=== PATIENT | female | born 1985 | race Hispanic/Latino ===

== ENCOUNTER 2018-11-16 17:27 | Emergency (ER) | payer OTHER ==
[2018-11-16 18:23] LABS: Absolute Lymphocytes (CBC) 4.1 K/uL (0.7-4.9); Absolute Monocytes 0.7 K/uL (0.1-1.3); Absolute Neutrophil 7.6 K/uL (1.8-8.0); Basophils % 0.4 % (0-1.3); Eosinophils % 1.2 % (0-4.4); Hematocrit 40.1 % (36.0-45.0); Lymphocytes % 32.4 % (15.3-44.8); MCH 26.7 pg (27.0-35.0); MCV 81.4 fL (80-100); MPV 8.1 fL (7.6-11.3); Monocytes % 5.4 % (3.3-12.3); RBC Red Blood Cell Count 4.93 M/uL (3.86-4.86)
[2018-11-16 18:53] LABS: ALT/SGPT 23 U/L (12-78); AST/SGOT 10 U/L (15-37); Albumin 3.5 g/dL (3.4-5.0); Alkaline Phosphatase 105 U/L (45-117); BUN Blood Urea Nitrogen 10 mg/dL (7-18); Bicarbonate 25 mmol/L (21-32); Bilirubin Direct < 0.1 mg/dL (0-0.2); Bilirubin Total 0.2 mg/dL (0.2-1.0); Glucose Level 98 mg/dL (74-106); Lipase 176 U/L (73-393); Potassium 3.6 mmol/L (3.5-5.1); Protein, Total 8.1 g/dL (6.4-8.2); Sodium Level 140 mmol/L (136-145)
[2018-11-16] MEDS ORDERED: NA CHLORIDE 0.9% 1,000 ML ONE (19:00)
[2018-11-16] MEDS ORDERED: ONDANSETRON 4 MG/2 ML VIAL ONE (19:41)
[2018-11-16] MEDS ORDERED: PROMETHAZINE 25 MG/ML VIAL ONE (19:44)
[2018-11-16 20:14] LABS: Urine Blood NEGATIVE (NEG); Urine Glucose NEGATIVE (NEG); Urine Protein NEGATIVE (NEG); Urine pH 5.5 (5.0-7.0)
[2018-11-16 20:16] LABS: Urine Bacteria <20 /HPF (<20); Urine RBC <5 /HPF (NONE SEEN)
[2018-11-16 20:17] LABS: Urine Culture Reflex Order NOT NEEDED
[2018-11-16] MEDS ORDERED: KETOROLAC 30 MG/ML INJ ONE (22:09)
--- NOTE | 2018-11-16 22:16 | RAD REPORT ---
EXAM DESCRIPTION: CT - Abdomen Pelvis W Contrast - 11/16/2018 9:41 pm CLINICAL HISTORY: Abdominal pain, right lower quadrant pain COMPARISON: None. TECHNIQUE: Biphasic, helical CT imaging of the abdomen and pelvis was performed following 100 ml non -ionic IV contrast. Oral contrast was given. All CT scans are performed using dose optimization technique as appropriate and may include automated exposure control or mA/KV adjustment according to patient size. FINDINGS: No suspicious findings in the lung bases. Diffuse fatty infiltration of the liver with no focal liver lesions seen. Spleen and pancreas are unr emarkable. Gallbladder and biliary tree are also without suspicious finding. Symmetric renal function is seen with no hydronephrosis or suspicious renal mass. A 6 mm nonobstructi ng calculus is present lower pole of the right kidney. Urinary bladder is contracted. No bladder calc ulus. No pyelonephritis or acute parenchymal process. No adrenal abnormalities. No dilated bowel loops or bowel wall thickening. No free air, free fluid or inflammatory stranding. No mass or bulky lymphadenopathy. No omental thickening. Uterus and ovaries show no suspicious findi ngs. Approximately 10 cm size hernia is present in the midline and right side of the abdomen. There is molly stasis of the abdominal wall musculature at the hernia. Several loops of small bowel extends through the hernia defect. No acute bowel edema or congestion of the herniated fat. No suspicious bony findings. IMPRESSION: Large 10 centimeter midline and right side ventral hernia is seen in the lower pelvis. T he herniated fat and herniated bowel extend in the right lower quadrant subcutaneous fat accounting f or the palpable abnormality. Hernia has a wide neck. There is no congestion or edema of the herniated bowel loops or herniated fat . Fatty infiltration of the liver. Nonobstructing calculus lower pole right kidney.
--- NOTE | 2018-11-16 22:31 | EDPHYS ---
Physician Documentation [facility] Name: Padmini Storey Age: 32 yrs Sex: Female : 1985 Arrival Date: 11/16/2018 Time: 17:32 Bed 3 Private MD: ED Physician Cristian Ham HPI: 11/16 18:34 This 32 yrs old Female presents to ER via Ambulatory with complaints of Abdominal Pain. snw 18:34 The patient presents with abdominal pain that is diffuse. Onset: The symptoms/episode snw began/occurred 3 day(s) ago. The symptoms do not radiate. Associated signs and symptoms: Pertinent positives: constipation, diarrhea, nausea. The symptoms are described as crampy. Severity of pain: At its worst the pain was moderate. The patient has experienced similar episodes in the past. It is unknown whether or not the patient has recently seen a physician. 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 - Social history:: Smoking status: Patient/guardian denies using tobacco, Patient/guardian denies using alcohol, street drugs. - Ebola Screening: : Patient negative for fever greater than or equal to 101.5 degrees Fahrenheit, and additional compatible Ebola Virus Disease symptoms Patient denies exposure to infectious person Patient denies travel to an Ebola-affected area in the 21 days before illness onset No symptoms or risks identified at this time. ROS: 18:34 Constitutional: Negative for fever, chills, and weight loss, Eyes: Negative for injury, snw pain, redness, and discharge, ENT: Negative for injury, pain, and discharge, Neck: Negative for injury, pain, and swelling, Cardiovascular: Negative for chest pain, palpitations, and edema, Respiratory: Negative for shortness of breath, cough, wheezing, and pleuritic chest pain, Back: Negative for injury and pain, : Negative for injury, bleeding, discharge, and swelling, MS/Extremity: Negative for injury and deformity, Skin: Negative for injury, rash, and discoloration, Neuro: Negative for headache, weakness, numbness, tingling, and seizure. 18:34 Abdomen/GI: Positive for abdominal pain, nausea, diarrhea, constipation. Exam: 18:33 Constitutional: This is a well developed, well nourished patient who is awake, alert, snw and in no acute distress. Head/Face: Normocephalic, atraumatic. Eyes: Pupils equal round and reactive to light, extra-ocular motions intact. Lids and lashes normal. Conjunctiva and sclera are non-icteric and not injected. Cornea within normal limits. Periorbital areas with no swelling, redness, or edema. ENT: Nares patent. No nasal discharge, no septal abnormalities noted. Tympanic membranes are normal and external auditory canals are clear. Oropharynx with no redness, swelling, or masses, exudates, or evidence of obstruction, uvula midline. Mucous membranes moist. Neck: Trachea midline, no thyromegaly or masses palpated, and no cervical lymphadenopathy. Supple, full range of motion without nuchal rigidity, or vertebral point tenderness. No Meningismus. Chest/axilla: Normal chest wall appearance and motion. Nontender with no deformity. No lesions are appreciated. Cardiovascular: Regular rate and rhythm with a normal S1 and S2. No gallops, murmurs, or rubs. Normal PMI, no JVD. No pulse deficits. Respiratory: Lungs have equal breath sounds bilaterally, clear to auscultation and percussion. No rales, rhonchi or wheezes noted. No increased work of breathing, no retractions or nasal flaring. Abdomen/GI: Soft, non-tender, with normal bowel sounds. No distension or tympany. No guarding or rebound. evidence of minimal tenderness throughout. Obese Back: No spinal tenderness. No costovertebral tenderness. Full range of motion. Skin: Warm, dry with normal turgor. Normal color with no rashes, no lesions, and no evidence of cellulitis. MS/ Extremity: Pulses equal, no cyanosis. Neurovascular intact. Full, normal range of motion. Neuro: Awake and alert, GCS 15, oriented to person, place, time, and situation. Cranial nerves II-XII grossly intact. Motor strength 5/5 in all extremities. Sensory grossly intact. Cerebellar exam normal. Normal gait. 22:26 Abdomen/GI: Inspection: obese Bowel sounds: normal, Palpation: mild abdominal snw tenderness, in the suprapubic area and right lower quadrant, no hard mass, no palpable mass, soft, mildly tender right lower quad. Vital Signs: 17:43 BP 140 / 84; Pulse 78; Resp 16; Temp 99.4; Pulse Ox 99% on R/A; Weight 77.11 kg; Height ch 5 ft. (152.40 cm); Pain 8/10; 18:45 BP 118 / 81; Pulse 83; Resp 16 S; Pulse Ox 100% on R/A; aa5 22:17 BP 123 / 82; Pulse 93; Resp 16 S; Pulse Ox 100% on R/A; jd3 17:43 Body Mass Index 33.20 (77.11 kg, 152.40 cm) ch MDM: 17:48 Patient medically screened. snw 22:25 Data reviewed: vital signs, nurses notes. Data interpreted: Pulse oximetry: on room air snw is 100 %. Interpretation: normal. Counseling: I had a detailed discussion with the patient and/or guardian regarding: the historical points, exam findings, and any diagnostic results supporting the discharge/admit diagnosis, the presence of at least one elevated blood pressure reading (>120/80) during this emergency department visit, lab results, radiology results, the need for outpatient follow up, to return to the emergency department if symptoms worsen or persist or if there are any questions or concerns that arise at home. Special discussion: Based on the patient's Hx, exam, and Dx evaluation, there is no indication for emergent surgery or inpatient Tx. It is understood by the patient/guardian that if the Sx's persist or worsen they need to return immediately for re-evaluation. I have referred the patient to see his PCP for further evaluation of high blood pressure. Based on the history and exam findings, there is no indication for further emergent testing or inpatient evaluation. I discussed with the patient/guardian the need to see the general surgeon for further evaluation of the symptoms. I discussed with the patient/guardian the need to see the primary care provider for further evaluation of the symptoms. 11/16 17:46 Order name: Basic Metabolic Panel; Complete Time: 18:55 snw 11/16 17:46 Order name: CBC with Diff; Complete Time: 18:43 snw 11/16 17:46 Order name: Hepatic Function; Complete Time: 18:55 snw 11/16 17:46 Order name: Lipase; Complete Time: 18:55 snw 11/16 17:46 Order name: Urine Culture snw 11/16 17:46 Order name: Urine Microscopic Only; Complete Time: 20:19 snw 11/16 17:46 Order name: IV Saline Lock; Complete Time: 18:18 snw 11/16 17:46 Order name: Labs collected and sent; Complete Time: 18:18 snw 11/16 18:47 Order name: CT Abd/Pelvis - W/Contrast; Complete Time: 22:17 snw 11/16 19:16 Order name: Urine Dipstick--Ancillary (enter results); Complete Time: 20:19 mt 11/16 19:16 Order name: Urine --Ancillary (enter results); Complete Time: 20:19 mt 11/16 17:46 Order name: Urine Test (obtain specimen); Complete Time: 19:12 snw 11/16 17:46 Order name: Urine Dipstick-Ancillary (obtain specimen); Complete Time: 19:12 snw Administered Medications: 19:08 Drug: NS 0.9% 1000 ml Route: IV; Rate: 125 ml/hr; Site: right antecubital; em 23:11 Follow up: Response: No adverse reaction; IV Status: Order to discontinue infusion jd3 19:39 Drug: Phenergan 6.25 mg Route: IVP; Site: right antecubital; jd3 22:05 Follow up: Response: No adverse reaction jd3 22:05 Drug: TORadol 30 mg Route: IVP; Site: right antecubital; jd3 23:11 Follow up: Response: No adverse reaction jd3 Disposition: 11/17 06:39 Co-signature as Attending Physician, Cristian Ham MD I agree with the assessment and dane plan of care. Disposition: 11/16/18 22:30 Discharged to Home. Impression: Ventral hernia without obstruction or gangrene. - Condition is Stable. - Discharge Instructions: Hernia, Adult, Ventral Hernia. - Prescriptions for Diclofenac Sodium 75 mg Oral Tablet Sustained Release - take 1 tablet by ORAL route 2 times per day; 30 tablet. Miralax 17 gram/dose Oral - take 1 packet by ORAL route once daily dilute powder in 8 ounces of water or juice; 1 box. - Medication Reconciliation Form, Thank You Letter, Antibiotic Education, Prescription Opioid Use form. - Follow up: Teodoro Shin MD; When: 1 - 2 days; Reason: Recheck today's complaints, Continuance of care. Follow up: Private Physician; When: 2 - 3 days; Reason: Recheck today's complaints, Continuance of care. Follow up: Emergency Department; When: As needed; Reason: Worsening of condition. Signatures: Dispatcher [employer] Claudia Cole, RN RN Cristian Jennings MD MD cha Therrien, Shelly, AGENCY LEGAL COUNSEL-C AGENCY LEGAL COUNSEL-Csnw Ignacio Cleary, TELEMETRY NURSE TELEMETRY NURSE Fredrick Arredondo RN RN jd3 Corrections: (The following items were deleted from the chart) 11/16 23:15 22:30 11/16/2018 22:30 Discharged to Home. Impression: Ventral hernia without jd3 obstruction or gangrene. Condition is Stable. Forms are Medication Reconciliation Form, Thank You Letter, Antibiotic Education, Prescription Opioid Use. Follow up: Teodoro Shin; When: 1 - 2 days; Reason: Recheck today's complaints, Continuance of care. Follow up: Private Physician; When: 2 - 3 days; Reason: Recheck today's complaints, Continuance of care. Follow up: Emergency Department; When: As needed; Reason: Worsening of condition. snw
--- NOTE | 2018-11-16 22:31 | ER ---
Nurse's Notes [facility] Name: Padmini Storey Age: 32 yrs Sex: Female : 1985 Arrival Date: 11/16/2018 Time: 17:32 Bed 3 Private MD: Diagnosis: Ventral hernia without obstruction or gangrene Presentation: 11/16 17:38 Presenting complaint: Patient states: weird bowel movements, nausea, pain to abdomen, ch generalized, since Thursday. 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 Transition of care: patient was not received from another setting of care. Onset of symptoms was November 12, 2018. Risk Assessment: Do you want to hurt yourself or someone else? Patient reports no desire to harm self or others. Initial Sepsis Screen: Does the patient meet any 2 criteria? No. Patient's initial sepsis screen is negative. Does the patient have a suspected source of infection? No. Patient's initial sepsis screen is negative. Care prior to arrival: None. 17:38 Method Of Arrival: Ambulatory 17:38 Acuity: CHRISTINE 3 ch Triage Assessment: 17:43 General: Appears in no apparent distress. uncomfortable, Behavior is calm, cooperative, ch appropriate for age. Pain: Complains of pain in abdomen Pain currently is 9 out of 10 on a pain scale. GI: Reports lower abdominal pain, upper abdominal pain, nausea. 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 - Social history:: Smoking status: Patient/guardian denies using tobacco, Patient/guardian denies using alcohol, street drugs. - Ebola Screening: : Patient negative for fever greater than or equal to 101.5 degrees Fahrenheit, and additional compatible Ebola Virus Disease symptoms Patient denies exposure to infectious person Patient denies travel to an Ebola-affected area in the 21 days before illness onset No symptoms or risks identified at this time. Screenin:05 Abuse screen: Denies threats or abuse. Nutritional screening: No deficits noted. aa5 Tuberculosis screening: No symptoms or risk factors identified. Fall Risk None identified. Assessment: 18:05 General: Appears comfortable, Behavior is calm, cooperative. Pain: Complains of pain in aa5 right upper quadrant, left upper quadrant, right lower quadrant and left lower quadrant Pain does not radiate. Pain currently is 7 out of 10 on a pain scale. Quality of pain is described as aching, crampy, dull, Pain began 4 days ago Is continuous. Neuro: Level of Consciousness is awake, alert, obeys commands, Oriented to person, place, time, situation. Cardiovascular: Heart tones S1 S2 present Rhythm is regular. Respiratory: Airway is patent Respiratory effort is even, unlabored, Respiratory pattern is regular, symmetrical, Breath sounds are clear bilaterally. GI: Abdomen is round non-distended, Bowel sounds present X 4 quads. Abd is soft X 4 quads Abdomen is tender to palpation in right lower quadrant and left lower quadrant Reports diarrhea, nausea, Patient currently denies vomiting. : Denies burning with urination. EENT: No signs and/or symptoms were reported regarding the EENT system. Derm: Skin is pink, warm \\T\\ dry. Musculoskeletal: Range of motion: intact in all extremities. 18:58 Reassessment: Patient and/or family updated on plan of care and expected duration. Pain aa5 level reassessed. Patient is alert, oriented x 3, equal unlabored respirations, skin warm/dry/pink. Pt drinking CT oral contrast, SOLUTIONS DEVELOPMENT ANALYST notified of pt's complaint of nausea at this time. . 19:39 Reassessment: Patient and/or family updated on plan of care and expected duration. Pain jd3 level reassessed. Patient is alert, oriented x 3, equal unlabored respirations, skin warm/dry/pink. CT notified of pt finishing PO contrast. 22:16 Reassessment: Patient appears in no apparent distress at this time. Patient and/or jd3 family updated on plan of care and expected duration. Pain level reassessed. Patient is alert, oriented x 3, equal unlabored respirations, skin warm/dry/pink. 23:11 Reassessment: Patient appears in no apparent distress at this time. Patient and/or jd3 family updated on plan of care and expected duration. Pain level reassessed. Patient is alert, oriented x 3, equal unlabored respirations, skin warm/dry/pink. Vital Signs: 17:43 BP 140 / 84; Pulse 78; Resp 16; Temp 99.4; Pulse Ox 99% on R/A; Weight 77.11 kg; Height ch 5 ft. (152.40 cm); Pain 8/10; 18:45 BP 118 / 81; Pulse 83; Resp 16 S; Pulse Ox 100% on R/A; aa5 22:17 BP 123 / 82; Pulse 93; Resp 16 S; Pulse Ox 100% on R/A; jd3 17:43 Body Mass Index 33.20 (77.11 kg, 152.40 cm) ED Course: 17:32 Patient arrived in ED. sb2 17:39 Triage completed. ch 17:43 Arm band placed on right wrist. Patient placed in an exam room, on a stretcher. ch 17:45 [facility] Frank [facility]C [facility]. snw 17:45 Cristian Ham MD is Attending Physician. snw 17:53 Beth Muñoz RN is Primary Nurse. aa5 18:05 Patient has correct armband on for positive identification. Placed in gown. Bed in low aa5 position. Call light in reach. Side rails up X 1. Adult w/ patient. 18:10 Missed attempt(s): 20 gauge in left antecubital area. Bleeding controlled, band aid aa5 applied, catheter tip intact. 18:10 No provider procedures requiring assistance completed. aa5 18:15 Initial lab(s) drawn, by me, sent to lab. Inserted saline lock: 22 gauge in right aa5 forearm, using aseptic technique. Blood collected. 19:05 Report given to IVAN Chaparro. aa5 21:[address] via wheelchair. vm2 21:42 CT Abd/Pelvis - W/Contrast In Process Unspecified. EDMS 21:48 CT completed. Patient tolerated procedure well. Patient moved back from CT. vm2 22:29 Teodoro Shin MD is Referral Physician. snw 23:10 IV discontinued, intact, bleeding controlled, No redness/swelling at site. Pressure jd3 dressing applied. Administered Medications: 19:08 Drug: NS 0.9% 1000 ml Route: IV; Rate: 125 ml/hr; Site: right antecubital; em 23:11 Follow up: Response: No adverse reaction; IV Status: Order to discontinue infusion jd3 19:39 Drug: Phenergan 6.25 mg Route: IVP; Site: right antecubital; jd3 22:05 Follow up: Response: No adverse reaction jd3 22:05 Drug: TORadol 30 mg Route: IVP; Site: right antecubital; jd3 23:11 Follow up: Response: No adverse reaction jd3 Outcome: 22:30 Discharge ordered by . snw 23:10 Discharged to home ambulatory, with family. jd3 23:10 Condition: stable 23:10 Discharge instructions given to patient, family, Instructed on discharge instructions, follow up and referral plans. medication usage, Demonstrated understanding of instructions, follow-up care, medications, Prescriptions given X 2. 23:15 Patient left the ED. jd3 Signatures: Dispatcher [employer] Claudia Cole, RN RN Telma Rodriges, ELECTRICIAN SHIP-C ELECTRICIAN SHIP-Csnw Ignacio Cleary, BILINGUAL TEACHER BILINGUAL TEACHER Beth Bentley RN RN aa5 Sanjuana Carbajal 2 Fredrick Anne RN RN jd3 Norma Serna [facility]
== END 2018-11-16 23:15 | disposition home or self-care (01) ==
LOC: ER 17:27
DX: K43.9 Ventral hernia without obstruction or gangrene (principal); Z88.5 Allergy status to narcotic agent; Z88.6 Allergy status to analgesic agent; Z88.8 Allergy status to other drugs, medicaments and biological substances
CPT/HCPCS: 36415; 74177; 80048; 80076; 81003; 81015; 81025; 83690; 85025; 87086; 87088; 96361; 96374; 96375; 99284; J2405; J2550; J7030; Q9967

== ENCOUNTER 2019-06-17 15:34 | Emergency (ER) | payer OTHER, SELFPAY ==
--- OUTSIDE RECORDS SUMMARY | 2019-06-17 15:36 | XMS REPORT ---
:1985 [facility] [address] [place] [address] Care Team Providers Name Role Phone Unavailable Unavailable Unavailable Problems This patient has no known problems. Allergies, Adverse Reactions, Alerts This patient has no known allergies or adverse reactions. Medications This patient has no known medications.
--- NOTE | 2019-06-17 16:43 | RAD REPORT ---
EXAM DESCRIPTION: RAD - Ankle Right 3 View - 06/17/2019 4:36 pm CLINICAL HISTORY: pain COMPARISON: No comparisons FINDINGS: Soft tissue swelling is seen about the lateral ankle. A small amount of soft tissue air is noted. Prominent plantar calcaneal spur. No fracture is seen.
[2019-06-17] MEDS ORDERED: TETANUS & DIPHTHERIA TOX,ADULT 0.5 ML VIAL ONE (17:10)
[2019-06-17] MEDS ORDERED: AMOX/K CLAV 875 MG TAB ONE (17:10)
[2019-06-17] MEDS ORDERED: LIDOCAINE VISCOUS 2% SOLN 15 ML UDC ONE (17:12)
--- NOTE | 2019-06-17 17:29 | EDPHYS ---
Physician Documentation [facility] Name: Padmini Storey Age: 33 yrs Sex: Female : 1985 Arrival Date: 06/17/2019 Time: 15:38 Bed 27 Private MD: ED Physician Titi Aaron HPI: 06/17 16:48 This 33 yrs old Female presents to ER via Wheelchair with complaints of Dog kb Bite. 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 Onset: The symptoms/episode began/occurred just prior to arrival. Animal information: Patient/Caregiver unable to provide information related to the animal. Secondary to the bite the patient reports an abrasion, erythema, pain, swelling. Associated signs and symptoms: Pertinent positives: erythema at site, pain at site, swelling at site. Severity of symptoms: At their worst the symptoms were mild, moderate, in the emergency department the symptoms are unchanged. The patient has not experienced similar symptoms in the past. The patient has not recently seen a physician. 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 - Social history:: Smoking status: Patient/guardian denies using tobacco. - Ebola Screening: : Patient denies travel to an Ebola-affected area in the 21 days before illness onset. ROS: 16:48 Constitutional: Negative for fever, chills, and weight loss, Cardiovascular: Negative kb for chest pain, palpitations, and edema, Respiratory: Negative for shortness of breath, cough, wheezing, and pleuritic chest pain, Abdomen/GI: Negative for abdominal pain, nausea, vomiting, diarrhea, and constipation, Back: Negative for injury and pain, MS/Extremity: Negative for injury and deformity, Neuro: Negative for headache, weakness, numbness, tingling, and seizure. 16:48 Skin: Positive for abrasion(s), puncture, of the anterior aspect of right ankle and lateral aspect of right calf and medial aspect of left calf. Exam: 16:46 Constitutional: This is a well developed, well nourished patient who is awake, alert, kb and in no acute distress. Head/Face: Normocephalic, atraumatic. Chest/axilla: Normal chest wall appearance and motion. Nontender with no deformity. No lesions are appreciated. Cardiovascular: Regular rate and rhythm with a normal S1 and S2. No gallops, murmurs, or rubs. Normal PMI, no JVD. No pulse deficits. Respiratory: Lungs have equal breath sounds bilaterally, clear to auscultation and percussion. No rales, rhonchi or wheezes noted. No increased work of breathing, no retractions or nasal flaring. Abdomen/GI: Soft, non-tender, with normal bowel sounds. No distension or tympany. No guarding or rebound. No evidence of tenderness throughout. MS/ Extremity: Pulses equal, no cyanosis. Neurovascular intact. Full, normal range of motion. Neuro: Awake and alert, GCS 15, oriented to person, place, time, and situation. Cranial nerves II-XII grossly intact. Motor strength 5/5 in all extremities. Sensory grossly intact. Cerebellar exam normal. Normal gait. 16:46 Skin: injury, bite(s), superficial, of the lateral aspect of right calf, anterior aspect of right ankle and medial aspect of left calf. Vital Signs: 15:54 BP 133 / 88; Pulse 103; Resp 18; Temp 97.7; Pulse Ox 100% on R/A; Weight 79.38 kg (R); aj1 Height 5 ft. 0 in. (152.40 cm) (R); Pain 8/10; 16:50 BP 128 / 92; Pulse 84; Resp 17 S; Pulse Ox 100% ; ca1 17:50 BP 131 / 86; Pulse 82; Resp 16 S; Temp 97.8(O); Pulse Ox 100% ; ca1 15:54 Body Mass Index 34.18 (79.38 kg, 152.40 cm) aj1 MDM: 15:54 Patient medically screened. kb 16:46 Data reviewed: vital signs, nurses notes. Data interpreted: Pulse oximetry: on room air kb is 100 %. Interpretation: normal. Counseling: I had a detailed discussion with the patient and/or guardian regarding: the historical points, exam findings, and any diagnostic results supporting the discharge/admit diagnosis, radiology results, the need for outpatient follow up, a family practitioner, to return to the emergency department if symptoms worsen or persist or if there are any questions or concerns that arise at home. 16:50 ED course: Pt reports she called the PD and filed a report.. kb 17:28 ED course: No lacerations requiring sutures. Wounds cleaned. . 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 Exp: ca1 02/19/2021. Lot #: [id number]. } Route: IM; Site: right deltoid; 17:37 Follow up: Response: No adverse reaction ca1 17:38 Follow up: Response: No adverse reaction ca1 Disposition: 06/18 17:59 Co-signature as Attending Physician, Titi Aaron MD. Disposition: 06/17/19 17:29 Discharged to Home. Impression: Bitten by dog. - Condition is Stable. - Discharge Instructions: Animal Bite, [id number]. - Prescriptions for Augmentin 875- 125 mg Oral Tablet - take 1 tablet by ORAL route every 12 hours for 10 days; 20 tablet. - Medication Reconciliation Form, Thank You Letter, Antibiotic Education, Prescription Opioid Use form. - Follow up: Emergency Department; When: As needed; Reason: Worsening of condition. Follow up: Private Physician; When: 2 - 3 days; Reason: Recheck today's complaints, Continuance of care, Re-evaluation by your physician. Signatures: Dispatcher [employer] [facility] Thao Mcnally, DRE-Papi ERICKSON-Humera Ramirez, RN RN aj1 Titi Aaron MD MD gs Acmaegan, Gabriella RN RN ca1 Corrections: (The following items were deleted from the chart) 06/17 16:35 16:27 Ankle Right 3 View+[id number].BRZ ordered. [facility] 18:03 17:29 06/17/2019 17:29 Discharged to Home. Impression: Bitten by dog. Condition is ca1 Stable. Discharge Instructions: Animal Bite, [id number]. Prescriptions for Augmentin 875-125 mg Oral Tablet - take 1 tablet by ORAL route every 12 hours for 10 days; 20 tablet. and Forms are Medication Reconciliation Form, Thank You Letter, Antibiotic Education, Prescription Opioid Use. Follow up: Emergency Department; When: As needed; Reason: Worsening of condition. Follow up: Private Physician; When: 2 - 3 days; Reason: Recheck today's complaints, Continuance of care, Re-evaluation by your physician. kb
--- NOTE | 2019-06-17 17:29 | ER ---
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 Bleeding lightly. Patient states that she already filed a police report. Transition of care: patient was not received from another setting of care. Onset of symptoms was June 17, 2019. Risk Assessment: Do you want to hurt yourself or someone else? Patient reports no desire to harm self or others. Initial Sepsis Screen: Does the patient meet any 2 criteria? HR > 90 bpm. No. Patient's initial sepsis screen is negative. Does the patient have a suspected source of infection? Yes: Skin breakdown/wound. Care prior to arrival: None. 15:51 Method Of Arrival: Wheelchair aj1 15:51 Acuity: CHRISTINE 3 aj1 Triage Assessment: 15:54 Bite description: bite sustained to right ankle, right calf and left calf by a dog, aj1 animal information: vaccination(s) is unknown. General: Appears in no apparent distress. uncomfortable, Behavior is calm, cooperative, appropriate for age. Pain: Complains of pain in right leg and left leg. Neuro: Level of Consciousness is awake, alert, obeys commands, Oriented to person, place, time, situation. Cardiovascular: Patient's skin is warm and dry. Respiratory: Airway is patent Respiratory effort is even, unlabored, Respiratory pattern is regular, symmetrical. 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 - Social history:: Smoking status: Patient/guardian denies using tobacco. - Ebola Screening: : Patient denies travel to an Ebola-affected area in the 21 days before illness onset. Screenin:50 Abuse screen: Denies threats or abuse. Denies injuries from another. Nutritional ca1 screening: No deficits noted. Tuberculosis screening: No symptoms or risk factors identified. Fall Risk None identified. Assessment: 16:50 General: Appears in no apparent distress. uncomfortable, Behavior is calm, cooperative, ca1 appropriate for age. Pain: Complains of pain in anterior aspect of right ankle and lateral aspect of right calf and medial aspect of left calf and left leg and right leg Pain currently is 8 out of 10 on a pain scale. Neuro: Level of Consciousness is awake, alert, obeys commands, Oriented to person, place, time, situation. Cardiovascular: Heart tones S1 S2 present Capillary refill < 3 seconds Patient's skin is warm and dry. Respiratory: Airway is patent Respiratory effort is even, unlabored, Respiratory pattern is regular, symmetrical, Breath sounds are clear bilaterally. GI: Abdomen is round non-distended, Bowel sounds present X 4 quads. Abd is soft and non tender X 4 quads. : No deficits noted. No signs and/or symptoms were reported regarding the genitourinary system. EENT: No deficits noted. No signs and/or symptoms were reported regarding the EENT system. Derm: Skin is healthy with good turgor, Skin is pink, warm \\T\\ dry. Musculoskeletal: Circulation, motion, and sensation intact. Capillary refill < 3 seconds, Range of motion: intact in all extremities. Injury Description: Bite sustained to anterior aspect of right ankle and lateral aspect of right calf and medial aspect of left calf and left leg and right leg caused by a dog, was sustained less than 30 minutes ago. 17:50 Reassessment: Patient appears in no apparent distress at this time. Patient is alert, ca1 oriented x 3, equal unlabored respirations, skin warm/dry/pink. Dressed wounds. Demonstrated proper use of crutches. Vital Signs: 15:54 BP 133 / 88; Pulse 103; Resp 18; Temp 97.7; Pulse Ox 100% on R/A; Weight 79.38 kg (R); aj1 Height 5 ft. 0 in. (152.40 cm) (R); Pain 8/10; 16:50 BP 128 / 92; Pulse 84; Resp 17 S; Pulse Ox 100% ; ca1 17:50 BP 131 / 86; Pulse 82; Resp 16 S; Temp 97.8(O); Pulse Ox 100% ; ca1 15:54 Body Mass Index 34.18 (79.38 kg, 152.40 cm) aj1 ED Course: 15:38 Patient arrived in ED. rg4 15:53 Triage completed. aj1 15:54 [facility]C [facility]. kb 15:54 Titi Aaron MD is Attending Physician. kb 15:54 Arm band placed on Patient placed in waiting room, Patient notified of wait time. aj1 16:14 Gabriella Acosta, RN is Primary Nurse. ca1 16:36 Ankle Right 3 View In Process Unspecified. EDMS 16:50 Patient has correct armband on for positive identification. Placed in gown. Bed in low ca1 position. Call light in reach. Side rails up X 1. Pulse ox on. NIBP on. 17:21 No provider procedures requiring assistance completed. Patient did not have IV access ca1 during this emergency room visit. Wound care: to dog bite located on anterior aspect of right ankle and lateral aspect of right calf and medial aspect of left calf and left leg and right leg was cleaned with Hibiclens, Patient tolerated well. 17:50 Dressings: Kerlix X 3; anterior aspect of right ankle and lateral aspect of right calf ca1 and medial aspect of left calf. Crutch training done. 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 Exp: ca1 02/19/2021. Lot #: [id number]. } Route: IM; Site: right deltoid; 17:37 Follow up: Response: No adverse reaction ca1 17:38 Follow up: Response: No adverse reaction ca1 Outcome: 17:29 Discharge ordered by . kb 18:02 Discharged to home via wheelchair, with crutches. ca1 18:02 Condition: stable 18:02 Discharge instructions given to patient, Instructed on discharge instructions, follow up and referral plans. medication usage, crutch walking, wound care, Demonstrated understanding of instructions, follow-up care, medications, wound care, crutch walking, Prescriptions given X 1. 18:03 Patient left the ED. ca1 Signatures: Dispatcher [employer] EDThao Hicks, HUMAN RESOURCES REPRESENTATIVE-C DRE-Humera Ramirez RN RN Trista Estrada4 Gabriella Acosta RN RN ca1
== END 2019-06-17 18:03 | disposition home or self-care (01) ==
LOC: ER 15:34
DX: S80.871A Other superficial bite, right lower leg, initial encounter (principal); Z88.5 Allergy status to narcotic agent; Z88.6 Allergy status to analgesic agent; Z88.8 Allergy status to other drugs, medicaments and biological substances
CPT/HCPCS: 90471; 90714; 99284

== ENCOUNTER 2019-06-20 13:03 | Emergency (ER) | payer SELFPAY ==
--- OUTSIDE RECORDS SUMMARY | 2019-06-20 13:13 | XMS REPORT ---
:1985 [facility] Address [address] [place] [address] Care Team Providers Name Role Phone Unavailable Unavailable Unavailable Problems This patient has no known problems. Allergies, Adverse Reactions, Alerts This patient has no known allergies or adverse reactions. Medications This patient has no known medications.
[2019-06-20] MEDS ORDERED: CODEINE 30MG/APAP 300MG TAB ONE (16:16)
[2019-06-20] MEDS ORDERED: IBUPROFEN 400 MG TAB ONE (16:27)
--- NOTE | 2019-06-20 16:31 | ER ---
Nurse's Notes [facility] Name: Padmini Storey Age: 33 yrs Sex: Female : 1985 Arrival Date: 06/20/2019 Time: 13:05 Bed 9 Private MD: Diagnosis: Bitten by dog;Puncture wound without foreign body, unspecified lower leg-bilateral;Puncture wound without foreign body, right foot-infected Presentation: 06/20 13:25 Presenting complaint: Patient states: "I got attacked by a dog on Thursday and came here aa5 and they said to follow-up with an orthopedic but since we are not using my insurance for this case they wanted money up front and I don't have that kind of money so they said to come here to maybe have a CT or MRI of my ankle". pt c/o swelling to right ankle. Transition of care: patient was not received from another setting of care. Onset of symptoms was June 17, 2019. Risk Assessment: Do you want to hurt yourself or someone else? Patient reports no desire to harm self or others. Initial Sepsis Screen: Does the patient meet any 2 criteria? No. Patient's initial sepsis screen is negative. Does the patient have a suspected source of infection? No. Patient's initial sepsis screen is negative. Care prior to arrival: None. 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 - Social history:: Smoking status: Patient/guardian denies using tobacco. - Ebola Screening: : No symptoms or risks identified at this time. Screenin:50 Abuse screen: Denies threats or abuse. Denies injuries from another. Nutritional rv screening: No deficits noted. Tuberculosis screening: No symptoms or risk factors identified. Fall Risk None identified. Assessment: 16:49 General: Appears in no apparent distress. uncomfortable, Behavior is calm, cooperative. rv Pain: Complains of pain in right foot and left leg. Neuro: Level of Consciousness is awake, alert, obeys commands, Oriented to person, place, time, situation. Cardiovascular: Patient's skin is warm and dry. Respiratory: Airway is patent. GI: No signs and/or symptoms were reported involving the gastrointestinal system. : No signs and/or symptoms were reported regarding the genitourinary system. EENT: No signs and/or symptoms were reported regarding the EENT system. Derm: Skin is intact. Musculoskeletal: No signs and/or symptoms reported regarding the musculoskeletal system. Vital Signs: 13:30 BP 142 / 75; Pulse 97; Resp 18 S; Temp 98.8(TE); Pulse Ox 98% on R/A; Weight 79.38 kg aa5 (R); Height 5 ft. 0 in. (152.40 cm) (R); Pain 6/10; 16:52 BP 138 / 76; Pulse 77; Resp 15; Temp 98.5; Pulse Ox 99% on R/A; rv 13:30 Body Mass Index 34.18 (79.38 kg, 152.40 cm) aa5 ED Course: 13:05 Patient arrived in ED. as 13:25 Arm band placed on. aa5 13:27 Triage completed. aa5 15:36 Cristian Moreno PA is PHCP. cp 15:36 Cristian Ham MD is Attending Physician. cp 16:02 Jose Antonio Rae, IVAN is Primary Nurse. rv 16:28 Ed Bhat MD is Referral Physician. cp 16:50 Patient has correct armband on for positive identification. Call light in reach. Side rv rails up X 1. Adult w/ patient. Cardiac monitoring not applicable on this patient. 16:50 No provider procedures requiring assistance completed. Patient did not have IV access rv during this emergency room visit. 16:51 Wound care: to puncture located on left leg and right foot was cleaned with Hibiclens, rv ice pack applied. Patient tolerated well. Administered Medications: 16:09 Not Given (Patient Refused): Tylenol #3 (300 mg-30 mg) 2 tabs PO once rv 16:15 Drug: Motrin 800 mg Route: PO; rv Outcome: 16:30 Discharge ordered by . cp 16:52 Discharged to home via wheelchair, with family. rv 16:52 Condition: good 16:52 Discharge instructions given to patient, family, Instructed on discharge instructions, follow up and referral plans. medication usage, wound care, Demonstrated understanding of instructions, follow-up care, medications, wound care, Prescriptions given X 2. 16:53 Patient left the ED. rv Signatures: Reyna Shin Audri, RN RN aa5 Cristian Moreno PA PA cp Vicente, Ronaldo, RN RN rv
--- NOTE | 2019-06-20 16:31 | EDPHYS ---
Physician Documentation [facility] Name: Padmini Storey Age: 33 yrs Sex: Female : 1985 Arrival Date: 06/20/2019 Time: 13:05 Bed 9 Private MD: ARIELA Physician Cristian Ham HPI: 06/20 15:50 This 33 yrs old Female presents to ER via Ambulatory with complaints of Ankle cp Swelling. 15:50 The patient presents with a bite, by a dog. The complaints affect the right ankle. cp Onset: The symptoms/episode began/occurred 3 day(s) ago. 15:50 Associated signs and symptoms: Pertinent negatives: fever, chills or sweats. 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 - Social history:: Smoking status: Patient/guardian denies using tobacco. - Ebola Screening: : No symptoms or risks identified at this time. ROS: 15:55 Constitutional: Negative for body aches, chills, fever, poor PO intake. cp 15:55 Eyes: Negative for injury, pain, redness, and discharge. cp Exam: 16:05 Constitutional: The patient appears in no acute distress, alert, awake, non-toxic, well cp developed, well nourished. 16:05 Head/Face: Normocephalic, atraumatic. cp 16:05 Eyes: Periorbital structures: appear normal, Conjunctiva: normal, Lids and lashes: appear normal, bilaterally. 16:05 ENT: External ear(s): are unremarkable, Nose: is normal, Mouth: Lips: moist, Oral mucosa: moist, Posterior pharynx: Airway: no evidence of obstruction, patent. 16:05 Chest/axilla: Inspection: normal. 16:05 Cardiovascular: Rate: normal. 16:05 Respiratory: the patient does not display signs of respiratory distress, Respirations: normal, no use of accessory muscles, no retractions, no splinting, no tachypnea. 16:05 Abdomen/GI: Inspection: abdomen appears normal. 16:05 Skin: Wound recheck: Puncture: the wound appears to have worsened, mild erythema, mild swelling, puncture wounds of right foot appear with mild swelling and mild erythema and scant drainage expressed, noted multiple puncture type wounds to left lower leg and right lower leg and right foot. Vital Signs: 13:30 BP 142 / 75; Pulse 97; Resp 18 S; Temp 98.8(TE); Pulse Ox 98% on R/A; Weight 79.38 kg aa5 (R); Height 5 ft. 0 in. (152.40 cm) (R); Pain 6/10; 16:52 BP 138 / 76; Pulse 77; Resp 15; Temp 98.5; Pulse Ox 99% on R/A; rv 13:30 Body Mass Index 34.18 (79.38 kg, 152.40 cm) aa5 MDM: 15:37 Patient medically screened. dane 15:45 Differential diagnosis: fracture, cellulitis, abscess. cp 16:30 Data reviewed: vital signs, nurses notes, old medical records, I have discussed the cp patient's presentation/case with the attending Emergency Department Physician; and as a result, I will discharge patient. 16:30 Counseling: I had a detailed discussion with the patient and/or guardian regarding: the cp historical points, exam findings, and any diagnostic results supporting the discharge/admit diagnosis, the need for outpatient follow up, a orthopedic surgeon, to return to the emergency department if symptoms worsen or persist or if there are any questions or concerns that arise at home. 06/20 15:43 Order name: Wound Culture cp Administered Medications: 16:09 Not Given (Patient Refused): Tylenol #3 (300 mg-30 mg) 2 tabs PO once rv 16:15 Drug: Motrin 800 mg Route: PO; rv Disposition: 20:16 Co-signature as Attending Physician, Cristian Ham MD I agree with the assessment and dane plan of care. Disposition: 06/20/19 16:30 Discharged to Home. Impression: Bitten by dog, Puncture wound without foreign body, unspecified lower leg - bilateral, Puncture wound without foreign body, right foot - infected. - Condition is Stable. - Discharge Instructions: Animal Bite, [id number]. - Prescriptions for Bactrim DS 800- 160 mg Oral Tablet - take 1 tablet by ORAL route every 12 hours for 10 days; 20 tablet. Ibuprofen 800 mg Oral Tablet - take 1 tablet by ORAL route every 8 hours As needed take with food; 30 tablet. - Medication Reconciliation Form, Thank You Letter, Antibiotic Education, Prescription Opioid Use form. - Follow up: Ed Bhat MD; When: 48 Hours; Reason: Wound Recheck. - Problem is an ongoing problem. - Symptoms have worsened. Signatures: Dispatcher [employer] Cristian Howell MD MD cha Calderon, Audri, RN RN aa5 Cristian Moreno PA PA Jose Antonio Jacbo, RN RN rv Corrections: (The following items were deleted from the chart) 16:53 16:30 06/20/2019 16:30 Discharged to Home. Impression: Bitten by dog; Puncture wound rv without foreign body, unspecified lower leg - bilateral; Puncture wound without foreign body, right foot - infected. Condition is Stable. Forms are Medication Reconciliation Form, Thank You Letter, Antibiotic Education, Prescription Opioid Use. Follow up: Ed Bhat; When: 48 Hours; Reason: Wound Recheck. Problem is an ongoing problem. Symptoms have worsened. cp
== END 2019-06-20 16:53 | disposition home or self-care (01) ==
LOC: ER 13:03
DX: S81.832A Puncture wound without foreign body, left lower leg, initial encounter (principal); S81.831A Puncture wound without foreign body, right lower leg, initial encounter; S91.331A Puncture wound without foreign body, right foot, initial encounter; W54.0XXA Bitten by dog, initial encounter; Y93.89 Activity, other specified; Y92.9 Unspecified place or not applicable; Z88.5 Allergy status to narcotic agent; Z88.8 Allergy status to other drugs, medicaments and biological substances
CPT/HCPCS: 87070; 87205; 99283

== ENCOUNTER 2019-06-28 08:47 | Emergency (ER) | payer SELFPAY ==
--- OUTSIDE RECORDS SUMMARY | 2019-06-28 08:55 | XMS REPORT ---
:1985 [facility] Address [address] [place] [address] [address] [place] [address] Care Team Providers Name Role Phone Unavailable Unavailable Unavailable Problems This patient has no known problems. Allergies, Adverse Reactions, Alerts This patient has no known allergies or adverse reactions. Medications This patient has no known medications.
[2019-06-28 09:27] LABS: Absolute Lymphocytes (CBC) 2.2 K/uL (0.7-4.9); Basophils % 0.5 % (0-1.3); Hematocrit 37.5 % (36.0-45.0); Lymphocytes % 19.7 % (15.3-44.8); MPV 8.1 fL (7.6-11.3); RBC Red Blood Cell Count 4.71 M/uL (3.86-4.86)
[2019-06-28 09:39] LABS: Potassium 3.8 mmol/L (3.5-5.1)
--- NOTE | 2019-06-28 10:03 | RAD REPORT ---
EXAM DESCRIPTION: US - Extremity Nonvascular Complete - 06/28/2019 9:53 am CLINICAL HISTORY: LLE swelling, eval for abscess COMPARISON: No comparisons TECHNIQUE: Real-time sonographic evaluation of the area of interest was performed. FINDINGS: No subcutaneous fluid collections seen to indicate abscess.
--- NOTE | 2019-06-28 10:24 | EDPHYS ---
Physician Documentation [facility] Name: Padmini Storey Age: 33 yrs Sex: Female : 1985 Arrival Date: 06/28/2019 Time: 08:50 Bed 19 Private MD: ED Physician Rony Sandoval HPI: 06/28 09:05 This 33 yrs old Female presents to ER via Ambulatory with complaints of rn possible Wound Infection. 09:14 The patient was bitten on the right leg and left leg. Onset: The symptoms/episode rn began/occurred 2 week(s) ago. Severity of symptoms: At their worst the symptoms were mild, in the emergency department the symptoms are unchanged. The patient has not experienced similar symptoms in the past. Reports bitten by dog almost 2 weeks ago, has finished augmentin, given bactrim on recent visit here, bruising improving but still feels pain at puncture sites, able to walk, no fever, reports some clear white drainage that improves after showering. Mild redness around wound on LLE. No streaking.. [employer]ER: 09:08 LMP N/A - control method hj Historical: - Allergies: 09:06 Morphine; hj 09:06 Scribner; hj 09:06 Percocet; hj 09:06 sensitive to tramadol, topamax, percocet, morphine, vicoden- mainly profuse vomiting.; hj 09:06 Topamax; hj 09:06 tramadol; hj 09:06 Vicodin; hj - PMHx: 09:06 "bad knees" possible RA; carpel tunnel; endomitriosis tumor allong c section scar, hj removed twice.; Kidney stones; Migraines; - PSHx: 09:06 ; kidney stone removal; R wrist; Carpal Tunnel Repair; hj - Immunization history:: Adult Immunizations up to date. - Social history:: Smoking status: Patient/guardian denies using tobacco, Patient/guardian denies using alcohol. - Ebola Screening: : Patient negative for fever greater than or equal to 101.5 degrees Fahrenheit, and additional compatible Ebola Virus Disease symptoms Patient denies exposure to infectious person Patient denies travel to an Ebola-affected area in the 21 days before illness onset. - Family history:: not pertinent. - Hospitalizations: : No recent hospitalization is reported. ROS: 09:14 Constitutional: Negative for fever, chills, and weight loss, MS/Extremity: Negative for rn deformity, Skin: A few dog bites/wounds to bilateral lower ext. Exam: 09:14 Constitutional: This is a well developed, well nourished patient who is awake, alert, rn and in no acute distress. MS/ Extremity: Pulses equal, no cyanosis. Neurovascular intact. Full, normal range of motion. Equal circumference. + LLE with medial 1cm puncture wound on mid-calf, no drainage, + superior edge of wound with underlying induration that measures approx 3cm in irregular diameter and a little tender. No streaking. Vital Signs: 09:07 BP 121 / 75; Pulse 97; Resp 18; Temp 98.1(O); Pulse Ox 99% on R/A; Weight 79.38 kg; hj Height 5 ft. 0 in. (152.40 cm); Pain 5/10; 10:36 BP 125 / 72; Pulse 90; Resp 18; Pulse Ox 100% on R/A; hj 09:07 Body Mass Index 34.18 (79.38 kg, 152.40 cm) MDM: 08:55 Patient medically screened. rn 10:21 Differential diagnosis: superficial laceration, cellulitis. Data reviewed: vital signs, rn nurses notes, lab test result(s), radiologic studies, ultrasound, and as a result, I will discharge patient. Counseling: I had a detailed discussion with the patient and/or guardian regarding: the historical points, exam findings, and any diagnostic results supporting the discharge/admit diagnosis, lab results, radiology results, the need for outpatient follow up, to return to the emergency department if symptoms worsen or persist or if there are any questions or concerns that arise at home. Special discussion: I discussed with the patient/guardian in detail that at this point there is no indication for admission to the hospital. It is understood, however, that if the symptoms persist or worsen the patient needs to return immediately for re-evaluation. ED course: Ultrasound negative for fluid collection, WBC mild elevation, procal neg. Will add doxycycline and pcp f/u, recommend warm compresses and return precautions.. 06/28 09:04 Order name: CBC with Diff; Complete Time: 10:12 rn 06/28 09:04 Order name: Basic Metabolic Panel; Complete Time: 10:12 rn 06/28 09:04 Order name: Procalcitonin; Complete Time: 10:16 rn 06/28 09:04 Order name: Blood Culture Adult (2) rn 06/28 09:11 Order name: Extremity Nonvascular Complete; Complete Time: 10:12 [facility] 06/28 09:04 Order name: IV Start; Complete Time: 09:23 rn Administered Medications: No medications were administered Disposition: 06/28/19 10:23 Discharged to Home. Impression: Dog bite. - Condition is Stable. - Discharge Instructions: Animal Bite. - Prescriptions for Diflucan 150 mg Oral Tablet - take 1 tablet by ORAL route once daily for 3 days; 3 tablet. Doxycycline Monohydrate 100 mg Oral Tablet - take 1 tablet by ORAL route every 12 hours for 10 days; 20 tablet. - Medication Reconciliation Form, Thank You Letter, Antibiotic Education, Prescription Opioid Use, Work release form form. - Follow up: Private Physician; When: As needed; Reason: Recheck today's complaints, Re-evaluation by your physician. - Problem is an ongoing problem. - Symptoms have improved. Signatures: Dispatcher [employer] [facility] Rony Sandoval MD MD rn Joaquin, Henry, RN RN hj Corrections: (The following items were deleted from the chart) 09:11 09:05 Extrmty Nonvasular Limited+US.RAD.BRZ ordered. [facility] 10:36 10:23 06/28/2019 10:23 Discharged to Home. Impression: Dog bite. Condition is Stable. hj Forms are Medication Reconciliation Form, Thank You Letter, Antibiotic Education, Prescription Opioid Use. Follow up: Private Physician; When: As needed; Reason: Recheck today's complaints, Re-evaluation by your physician. Problem is an ongoing problem. Symptoms have improved. rn
--- NOTE | 2019-06-28 10:24 | ER ---
Nurse's Notes [facility] Name: Padmini Storey Age: 33 yrs Sex: Female : 1985 Arrival Date: 06/28/2019 Time: 08:50 Bed 19 Private MD: Diagnosis: Dog bite Presentation: 06/28 09:03 Presenting complaint: Patient states: i was bitten by a dog last June 17 and had a hj wound on my L lower leg and R foot area and on Augmentin and Bactrim antibiotics, im done with augmentin and still has to finish my bactrim; i feel like theres fluid on my L lower leg wound area;. Transition of care: patient was not received from another setting of care. Onset of symptoms was June 28, 2019. Risk Assessment: Do you want to hurt yourself or someone else? Patient reports no desire to harm self or others. Initial Sepsis Screen: Does the patient meet any 2 criteria? HR > 90 bpm. Does the patient have a suspected source of infection? Yes: Skin breakdown/wound. Care prior to arrival: None. 09:03 Method Of Arrival: Ambulatory 09:03 Acuity: CHRISTINE 3 hj Triage Assessment: 09:06 General: Appears in no apparent distress. uncomfortable, Behavior is calm, cooperative, hj appropriate for age. Pain: Complains of pain in right foot and left leg. [employer]: 09:08 LMP N/A - control method hj Historical: - Allergies: 09:06 Morphine; hj 09:06 Moore; hj 09:06 Percocet; hj 09:06 sensitive to tramadol, topamax, percocet, morphine, vicoden- mainly profuse vomiting.; hj 09:06 Topamax; hj 09:06 tramadol; hj 09:06 Vicodin; hj - PMHx: 09:06 "bad knees" possible RA; carpel tunnel; endomitriosis tumor allong c section scar, hj removed twice.; Kidney stones; Migraines; - PSHx: 09:06 ; kidney stone removal; R wrist; Carpal Tunnel Repair; hj - Immunization history:: Adult Immunizations up to date. - Social history:: Smoking status: Patient/guardian denies using tobacco, Patient/guardian denies using alcohol. - Ebola Screening: : Patient negative for fever greater than or equal to 101.5 degrees Fahrenheit, and additional compatible Ebola Virus Disease symptoms Patient denies exposure to infectious person Patient denies travel to an Ebola-affected area in the 21 days before illness onset. - Family history:: not pertinent. - Hospitalizations: : No recent hospitalization is reported. Screenin:06 Abuse screen: Denies threats or abuse. Denies injuries from another. Nutritional hj screening: No deficits noted. Tuberculosis screening: No symptoms or risk factors identified. Fall Risk None identified. Assessment: 09:30 General: Appears in no apparent distress. uncomfortable, Behavior is calm, cooperative, hj appropriate for age. Pain: Complains of pain in right leg and left leg and right foot. Neuro: Level of Consciousness is awake, alert, obeys commands, Oriented to person, place, time, situation, Appropriate for age. Cardiovascular: Capillary refill < 3 seconds Patient's skin is warm and dry. Respiratory: Airway is patent Respiratory effort is even, unlabored, Respiratory pattern is regular, symmetrical. GI: No signs and/or symptoms were reported involving the gastrointestinal system. : No signs and/or symptoms were reported regarding the genitourinary system. EENT: No signs and/or symptoms were reported regarding the EENT system. Derm: Wound noted right leg and left leg and right foot. Musculoskeletal: No signs and/or symptoms reported regarding the musculoskeletal system. Vital Signs: 09:07 BP 121 / 75; Pulse 97; Resp 18; Temp 98.1(O); Pulse Ox 99% on R/A; Weight 79.38 kg; hj Height 5 ft. 0 in. (152.40 cm); Pain 5/10; 10:36 BP 125 / 72; Pulse 90; Resp 18; Pulse Ox 100% on R/A; hj 09:07 Body Mass Index 34.18 (79.38 kg, 152.40 cm) ED Course: 08:50 Patient arrived in ED. rg4 08:55 Rony Sandoval MD is Attending Physician. rn 09:02 Teodoro Mendieta, IVAN is Primary Nurse. hj 09:05 Triage completed. hj 09:06 Arm band placed on left wrist. hj 09:06 Patient has correct armband on for positive identification. Bed in low position. Call light in reach. Side rails up X 1. 09:20 Initial lab(s) drawn, by me, sent to lab. First set of blood cultures drawn by me. hj 09:23 Inserted saline lock: 22 gauge in right wrist, using aseptic technique. Blood collected.hj 09:56 Extremity Nonvascular Complete In Process Unspecified. EDMS 10:35 No provider procedures requiring assistance completed. IV discontinued, intact, hj bleeding controlled, No redness/swelling at site. Pressure dressing applied. Administered Medications: No medications were administered Outcome: 10:23 Discharge ordered by MD. rn 10:35 Discharged to home ambulatory. hj 10:35 Condition: stable 10:35 Discharge instructions given to patient, Instructed on discharge instructions, follow up and referral plans. medication usage, Demonstrated understanding of instructions, follow-up care, medications, Prescriptions given X 2. 10:36 Patient left the ED. Signatures: Dispatcher [employer] EDMS Rony Sandoval MD MD rn Joaquin, Henry, RN RN hj Garcia, Rubi rg4
== END 2019-06-28 10:36 | disposition home or self-care (01) ==
LOC: ER 08:47
DX: S81.851D Open bite, right lower leg, subsequent encounter (principal); S81.852D Open bite, left lower leg, subsequent encounter; W54.0XXD Bitten by dog, subsequent encounter; Z88.5 Allergy status to narcotic agent
CPT/HCPCS: 36415; 76881; 80048; 84145; 85025; 87040; 99284

== ENCOUNTER 2019-07-13 08:58 | Emergency (ER) | payer OTHER, SELFPAY ==
--- OUTSIDE RECORDS SUMMARY | 2019-07-13 09:10 | XMS REPORT ---
:1985 [facility] Address [address] [place] [address] Care Team Providers Name Role Phone Unavailable Unavailable Unavailable Problems This patient has no known problems. Allergies, Adverse Reactions, Alerts This patient has no known allergies or adverse reactions. Medications This patient has no known medications.
[2019-07-13] MEDS ORDERED: KETOROLAC 30 MG/ML INJ ONE (09:54)
[2019-07-13] MEDS ORDERED: NA CHLORIDE 0.9% 1,000 ML ONE (09:55)
[2019-07-13] MEDS ORDERED: ONDANSETRON 4 MG/2 ML VIAL ONE (09:55)
[2019-07-13 10:18] LABS: Absolute Lymphocytes (CBC) 3.2 K/uL (0.7-4.9); Basophils % 0.5 % (0-1.3); Hematocrit 38.1 % (36.0-45.0); Lymphocytes % 28.9 % (15.3-44.8); MPV 8.4 fL (7.6-11.3)
[2019-07-13 10:34] LABS: ALT/SGPT 24 U/L (12-78); AST/SGOT 11 U/L (15-37); Albumin 3.1 g/dL (3.4-5.0); Alkaline Phosphatase 89 U/L (45-117); BUN Blood Urea Nitrogen 12 mg/dL (7-18); Bicarbonate 26 mmol/L (21-32); Bilirubin Direct < 0.1 mg/dL (0-0.2); Bilirubin Total 0.2 mg/dL (0.2-1.0); Glucose Level 97 mg/dL (74-106); Lipase 125 U/L (73-393); Potassium 3.8 mmol/L (3.5-5.1); Protein, Total 7.4 g/dL (6.4-8.2); Sodium Level 142 mmol/L (136-145)
[2019-07-13 11:19] LABS: Urine Blood NEGATIVE (NEG); Urine Glucose NEGATIVE (NEG); Urine Protein NEGATIVE (NEG); Urine Specific Gravity 1.025 (1.005-1.030)
--- NOTE | 2019-07-13 11:27 | RAD REPORT ---
EXAM DESCRIPTION: CT - Abdomen Pelvis W Contrast - 07/13/2019 11:09 am CLINICAL HISTORY: Abdominal pain COMPARISON: October 2018 TECHNIQUE: Computed axial tomography of the abdomen pelvis was obtained. 100 cc Isovue-300 was admin istered intravenously. Oral contrast was not requested which limits evaluation of bowel. All CT scans are performed using dose optimization technique as appropriate and may include automated exposure control or mA/KV adjustment according to patient size. FINDINGS: Right ventral hernia within the pelvis has a neck 6 centimeters. It contains nondilated sm all bowel. Tiny umbilical hernia contains fat Fatty liver The spleen, pancreas and adrenals unremarkable. 7.5 millimeter right renal calculus. No hydronephrosis. Unremarkable left kidney There is no evidence of diverticulitis. Normal appendix IMPRESSION: Right ventral hernia within the pelvis has a neck 6 centimeters. It contains nondilated small bowel.
[2019-07-13] MEDS ORDERED: FENTANYL CITR 100 MCG/2 ML ONE (11:42)
--- NOTE | 2019-07-13 13:16 | ER ---
Nurse's Notes [facility] Name: Padmini Storey Age: 33 yrs Sex: Female : 1985 Arrival Date: 07/13/2019 Time: 09:01 Bed 15 Private MD: Diagnosis: Ventral hernia without obstruction or gangrene Presentation: 07/13 09:05 Presenting complaint: N/D and diffuse abdominal pain x 3 days. Transition of care: hb patient was not received from another setting of care. Onset of symptoms was July 10, 2019. Risk Assessment: Do you want to hurt yourself or someone else? Patient reports no desire to harm self or others. Initial Sepsis Screen: Does the patient meet any 2 criteria? No. Patient's initial sepsis screen is negative. Does the patient have a suspected source of infection? No. Patient's initial sepsis screen is negative. Care prior to arrival: None. 09:05 Method Of Arrival: Ambulatory hb 09:05 Acuity: CHRISTINE 3 hb [employer]PER[employer]URING: 09:07 LMP N/A - control method hb Historical: - Allergies: 09:07 Morphine; hb 09:07 Effie; hb 09:07 Percocet; hb 09:07 sensitive to tramadol, topamax, percocet, morphine, vicoden- mainly profuse vomiting.; hb 09:07 Topamax; hb 09:07 tramadol; hb 09:07 Vicodin; hb - PMHx: 09:07 "bad knees" possible RA; carpel tunnel; endomitriosis tumor allong c section scar, hb removed twice.; Kidney stones; Migraines; - PSHx: 09:07 ; R wrist; kidney stone removal; Carpal Tunnel Repair; hb - Immunization history:: Adult Immunizations up to date. - Social history:: Smoking status: Patient/guardian denies using tobacco. - Ebola Screening: : No symptoms or risks identified at this time. Screenin:35 Abuse screen: Denies threats or abuse. Nutritional screening: No deficits noted. aa5 Tuberculosis screening: No symptoms or risk factors identified. Fall Risk None identified. Assessment: 09:35 General: Appears uncomfortable, Behavior is calm, cooperative. Pain: Complains of pain aa5 in right upper quadrant, left upper quadrant, right lower quadrant and left lower quadrant Pain does not radiate. Pain currently is 8 out of 10 on a pain scale. Quality of pain is described as aching, Pain began Is continuous. Neuro: Level of Consciousness is awake, alert, obeys commands, Oriented to person, place, time, situation. Cardiovascular: Heart tones S1 S2 present Rhythm is regular. Respiratory: Airway is patent Respiratory effort is even, unlabored, Respiratory pattern is regular, symmetrical, Breath sounds are clear bilaterally. GI: Abdomen is round non-distended, Bowel sounds present X 4 quads. Abd is soft X 4 quads Abdomen is tender to palpation in right upper quadrant, left upper quadrant, right lower quadrant and left lower quadrant Reports diarrhea, nausea, Patient currently denies vomiting. : Denies burning with urination, inability to void. EENT: No signs and/or symptoms were reported regarding the EENT system. Derm: Skin is pink, warm \\T\\ dry. Musculoskeletal: Range of motion: intact in all extremities. 09:35 Reassessment: Pt states "I also have a hernia and I am concerned about but they told me aa5 I needed to lose weight before I can have surgery" . 11:10 Reassessment: Patient is alert, oriented x 3, equal unlabored respirations, skin aa5 warm/dry/pink. reports nausea has improved, pain is 7/10 on a pain scale. . 11:30 Reassessment: Patient is alert, oriented x 3, equal unlabored respirations, skin aa5 warm/dry/pink. Pt requesting pain medication at this time 8/10 on a pain scale. PA was notified. . 13:25 Reassessment: po challenge tolerated. mg2 Vital Signs: 09:07 BP 124 / 77; Pulse 84; Resp 16; Temp 98.8; Pulse Ox 100% on R/A; Weight 79.38 kg; hb Height 5 ft. (152.40 cm); Pain 7/10; 10:01 BP 117 / 89; Pulse 77; Resp 18 S; Pulse Ox 97% on R/A; aa5 11:15 BP 106 / 69; Pulse 76; Resp 16 S; Pulse Ox 98% on R/A; Pain 7/10; aa5 12:00 BP 103 / 79; Pulse 84; Resp 16 S; Pulse Ox 97% on R/A; aa5 13:26 BP 110 / 78; Pulse 85; Resp 18; Temp 98; Pulse Ox 100% on R/A; Pain 0/10; mg2 09:07 Body Mass Index 34.18 (79.38 kg, 152.40 cm) hb ED Course: 09:01 Patient arrived in ED. as 09:06 Triage completed. hb 09:07 Arm band placed on. hb 09:10 Cristian Moreno PA is PHCP. cp 09:10 Arcadio Beckett MD is Attending Physician. cp 09:17 Beth Muñoz RN is Primary Nurse. aa5 09:35 Patient has correct armband on for positive identification. Bed in low position. Call aa5 light in reach. Side rails up X2. 09:45 Initial lab(s) drawn, by me, sent to lab. Inserted saline lock: 20 gauge in right aa5 antecubital area, using aseptic technique. Blood collected. 09:48 Urine collected: clean catch specimen, clear, UPT:Negative. aa5 11:09 CT Abd/Pelvis - IV Contrast Only In Process Unspecified. EDMS 12:00 Report given to IVAN Iglesias. aa5 13:13 Teodoro Shin MD is Referral Physician. cp 13:25 No provider procedures requiring assistance completed. IV discontinued, intact, mg2 bleeding controlled, No redness/swelling at site. Pressure dressing applied. Administered Medications: 09:58 Drug: NS 0.9% 1000 ml Route: IV; Rate: 1 bolus; Site: right antecubital; aa5 11:59 Follow up: IV Status: Completed infusion; IV Intake: 1000ml aa5 09:58 Drug: Zofran 4 mg Route: IVP; Site: right antecubital; aa5 10:05 Follow up: Response: No adverse reaction aa5 10:00 Drug: TORadol 30 mg Route: IVP; Site: right antecubital; aa5 10:05 Follow up: Response: No adverse reaction aa5 11:44 Drug: fentaNYL (PF) 25 mcg Route: IVP; Site: right antecubital; aa5 12:00 Follow up: Response: No adverse reaction aa5 Intake: 11:59 IV: 1000ml; Total: 1000ml. aa5 Outcome: 13:15 Discharge ordered by MD. cp 13:26 Discharged to home ambulatory, with family. mg2 13:26 Condition: stable 13:26 Discharge instructions given to patient, family, Instructed on discharge instructions, follow up and referral plans. medication usage, Demonstrated understanding of instructions, follow-up care, medications, Prescriptions given X 2. 13:27 Patient left the ED. mg2 Signatures: Dispatcher [employer] EDReyna Hale Audri, RN RN aa5 Cristian Moreno PA PA cp Baxter, Heather, RN RN Harris Borden RN RN mg2
--- NOTE | 2019-07-13 13:16 | EDPHYS ---
Physician Documentation [facility] Name: Padmini Storey Age: 33 yrs Sex: Female : 1985 Arrival Date: 07/13/2019 Time: 09:01 Bed 15 Private MD: ED Physician Arcadio Beckett HPI: 07/13 09:35 This 33 yrs old Female presents to ER via Ambulatory with complaints of cp Abdominal Pain. 09:35 The patient presents with abdominal pain that is diffuse. Onset: The symptoms/episode cp began/occurred 3 day(s) ago. The symptoms do not radiate. Associated signs and symptoms: Pertinent positives: diarrhea, Pertinent negatives: anorexia, blood in stools, chest pain, constipation, dysuria, fever, hematuria, shortness of breath, vaginal discharge, vomiting. The symptoms are described as waxing/waning. 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 - Social history:: Smoking status: Patient/guardian denies using tobacco. - Ebola Screening: : No symptoms or risks identified at this time. ROS: 09:40 Constitutional: Negative for body aches, chills, fever, poor PO intake. cp 09:40 Eyes: Negative for injury, pain, redness, and discharge. cp 09:40 ENT: Negative for drainage from ear(s), ear pain, sore throat, difficulty swallowing, difficulty handling secretions. 09:40 Cardiovascular: Negative for chest pain, palpitations. 09:40 Respiratory: Negative for cough, shortness of breath, wheezing. 09:40 Abdomen/GI: Positive for abdominal pain, nausea, diarrhea, Negative for vomiting, constipation, black/tarry stool, rectal bleeding. 09:40 Back: Negative for pain at rest, pain with movement, radiated pain. 09:40 : Negative for urinary symptoms, pelvic pain, vaginal bleeding, vaginal discharge. 09:40 Skin: Negative for cellulitis, rash. 09:40 Neuro: Negative for altered mental status, headache, weakness. 09:40 All other systems are negative. Exam: 09:50 Constitutional: The patient appears in no acute distress, alert, awake, non-toxic, well cp developed, well nourished. 09:50 Head/Face: Normocephalic, atraumatic. cp 09:50 Eyes: Periorbital structures: appear normal, Conjunctiva: normal, no exudate, no injection, Sclera: no appreciated abnormality, Lids and lashes: appear normal, bilaterally. 09:50 ENT: External ear(s): are unremarkable, Nose: is normal, Mouth: Lips: moist, Oral mucosa: pink and intact, moist, Posterior pharynx: is normal, airway is patent, no erythema, no exudate. 09:50 Chest/axilla: Inspection: normal, Palpation: is normal, no crepitus, no tenderness. 09:50 Cardiovascular: Rate: normal, Rhythm: regular. 09:50 Respiratory: the patient does not display signs of respiratory distress, Respirations: normal, no use of accessory muscles, no retractions, no splinting, no tachypnea, labored breathing, is not present, Breath sounds: are clear throughout, no decreased breath sounds, no stridor, no wheezing. 09:50 Abdomen/GI: Inspection: obese Bowel sounds: active, all quadrants, Palpation: soft, in all quadrants, moderate abdominal tenderness, in the right lower quadrant and left lower quadrant, rebound tenderness, is not appreciated, involuntary guarding, is not appreciated. 09:50 Back: pain, is absent, ROM is normal. 09:50 Skin: no rash present. Vital Signs: 09:07 BP 124 / 77; Pulse 84; Resp 16; Temp 98.8; Pulse Ox 100% on R/A; Weight 79.38 kg; hb Height 5 ft. (152.40 cm); Pain 7/10; 10:01 BP 117 / 89; Pulse 77; Resp 18 S; Pulse Ox 97% on R/A; aa5 11:15 BP 106 / 69; Pulse 76; Resp 16 S; Pulse Ox 98% on R/A; Pain 7/10; aa5 12:00 BP 103 / 79; Pulse 84; Resp 16 S; Pulse Ox 97% on R/A; aa5 13:26 BP 110 / 78; Pulse 85; Resp 18; Temp 98; Pulse Ox 100% on R/A; Pain 0/10; mg2 09:07 Body Mass Index 34.18 (79.38 kg, 152.40 cm) hb MDM: 09:18 Patient medically screened. cp 10:00 Differential diagnosis: bowel obstruction, cholecystitis, Cholelithiasis, gastritis, cp pancreatitis, Peptic Ulcer Disease, Perf. Duodenal Ulcer, Perf. Gastric Ulcer, Pelvic Inflammatory Disease, urinary tract infection. 13:14 Data reviewed: vital signs, nurses notes, lab test result(s), radiologic studies, CT cp scan, I have discussed the patient's presentation/case with the attending Emergency Department Physician; and as a result, I will discharge patient. 13:14 Special discussion: Based on the patient's Hx, exam, and Dx evaluation, there is no cp indication for emergent surgery or inpatient Tx. It is understood by the patient/guardian that if the Sx's persist or worsen they need to return immediately for re-evaluation. ED course: VSS. CT abdomen today similar to previous CT abdomen showing ventral hernia containing bowel w/o signs incarceration or gangrene. Will discharge to home for continuing monitoring. Patient has seen DR Shin in the past for evaluation of hernia. 07/13 09:32 Order name: Basic Metabolic Panel; Complete Time: 11:32 cp 07/13 09:32 Order name: CBC with Diff; Complete Time: 11:32 cp 07/13 09:32 Order name: Creatinine for Radiology; Complete Time: 11:32 cp 07/13 09:32 Order name: Hepatic Function; Complete Time: 11:32 cp 07/13 09:32 Order name: Lipase; Complete Time: 11:32 cp 07/13 10:03 Order name: Urine Dipstick--Ancillary (enter results) bd 07/13 09:32 Order name: IV Saline Lock; Complete Time: 09:51 cp 07/13 09:32 Order name: Labs collected and sent; Complete Time: 09:51 cp 07/13 10:03 Order name: Urine --Ancillary (enter results) bd 07/13 10:11 Order name: CT Abd/Pelvis - IV Contrast Only; Complete Time: 11:32 cp 07/13 09:32 Order name: Urine Dipstick-Ancillary (obtain specimen); Complete Time: 09:51 cp 07/13 09:32 Order name: Urine Test (obtain specimen); Complete Time: 09:51 cp 07/13 12:06 Order name: PO challenge; Complete Time: 12:29 cp Administered Medications: 09:58 Drug: NS 0.9% 1000 ml Route: IV; Rate: 1 bolus; Site: right antecubital; aa5 11:59 Follow up: IV Status: Completed infusion; IV Intake: 1000ml aa5 09:58 Drug: Zofran 4 mg Route: IVP; Site: right antecubital; aa5 10:05 Follow up: Response: No adverse reaction aa5 10:00 Drug: TORadol 30 mg Route: IVP; Site: right antecubital; aa5 10:05 Follow up: Response: No adverse reaction aa5 11:44 Drug: fentaNYL (PF) 25 mcg Route: IVP; Site: right antecubital; aa5 12:00 Follow up: Response: No adverse reaction aa5 Disposition: 07/13/19 13:15 Discharged to Home. Impression: Ventral hernia without obstruction or gangrene. - Condition is Stable. - Discharge Instructions: Hernia, Adult. - Prescriptions for Bentyl 20 mg Oral Tablet - take 2 tablets by ORAL route every 6 hours As needed; 30 tablet. Zofran 4 mg Oral Tablet - take 1 tablet by ORAL route every 12 hours As needed; 20 tablet. - Medication Reconciliation Form, Thank You Letter, Antibiotic Education, Prescription Opioid Use, Work release form form. - Follow up: Teodoro Shin MD; When: 2 - 3 days; Reason: Recheck today's complaints. - Problem is an ongoing problem. - Symptoms have improved. Addendum: 07/15/2019 08:53 Co-signature as Attending Physician, Arcadio Beckett MD I agree with the assessment and k dr plan of care. Signatures: Dispatcher [employer] EDOH Arcadio Beckett MD MD [facility] Beth Muñoz RN RN aa5 Cristian Moreno PA PA cp Baxter, Heather, RN RN Harris Borden RN RN mg2 Corrections: (The following items were deleted from the chart) 07/13 13:27 13:15 07/13/2019 13:15 Discharged to Home. Impression: Ventral hernia without mg2 obstruction or gangrene. Condition is Stable. Forms are Work release form, Medication Reconciliation Form, Thank You Letter, Antibiotic Education, Prescription Opioid Use. Follow up: Teodoro Shin; When: 2 - 3 days; Reason: Recheck today's complaints. Problem is an ongoing problem. Symptoms have improved. cp
== END 2019-07-13 13:27 | disposition home or self-care (01) ==
LOC: ER 08:58
DX: K43.9 Ventral hernia without obstruction or gangrene (principal); Z88.5 Allergy status to narcotic agent; Z88.6 Allergy status to analgesic agent; Z87.442 Personal history of urinary calculi
CPT/HCPCS: 96361; 85025; 80048; 36415; 81025; 80076; 81003; 83690; 74177; 96375; 96374; 99284; Q9967; J3010; J7030; J2405

== ENCOUNTER 2019-09-11 21:37 | Emergency (ER) | payer OTHER ==
[2019-09-11] MEDS ORDERED: FENTANYL CITR 100 MCG/2 ML ONE (22:44)
[2019-09-11] MEDS ORDERED: ONDANSETRON 4 MG/2 ML VIAL ONE (22:44)
[2019-09-11 23:07] LABS: Basophils % 0.4 % (0-1.3); Hematocrit 39.3 % (36.0-45.0); Lymphocytes % 22.3 % (15.3-44.8); MPV 8.7 fL (7.6-11.3); RBC Red Blood Cell Count 4.87 M/uL (3.86-4.86)
[2019-09-11 23:22] LABS: ALT/SGPT 27 U/L (12-78); AST/SGOT 17 U/L (15-37); Albumin 3.4 g/dL (3.4-5.0); Alkaline Phosphatase 100 U/L (45-117); BUN Blood Urea Nitrogen 10 mg/dL (7-18); Bicarbonate 25 mmol/L (21-32); Bilirubin Direct < 0.1 mg/dL (0-0.2); Bilirubin Total 0.2 mg/dL (0.2-1.0); Glucose Level 117 mg/dL (74-106); Lipase 152 U/L (73-393); Potassium 3.7 mmol/L (3.5-5.1); Protein, Total 7.8 g/dL (6.4-8.2); Sodium Level 140 mmol/L (136-145)
[2019-09-12] MEDS ORDERED: KETOROLAC 30 MG/ML INJ ONE (00:07)
--- NOTE | 2019-09-12 00:45 | EDPHYS ---
Physician Documentation [facility] Name: Padmini Storey Age: 33 yrs Sex: Female : 1985 Arrival Date: 09/11/2019 Time: 21:40 Bed 20 Private MD: ED Physician Titi Aaron HPI: 09/12 01:29 This 33 yrs old Female presents to ER via Ambulatory with complaints of gs Abdominal Pain, Back Pain, Chest Pain. 01:29 The patient presents with abdominal pain in the lower abdomen. gs 01:29 Onset: The symptoms/episode began/occurred yesterday, last night. The symptoms radiate gs to back. The symptoms radiate to epigastric area. Associated signs and symptoms: Pertinent positives: nausea, Pertinent negatives: constipation. The symptoms are described as crampy. Modifying factors: The symptoms are alleviated by nothing, the symptoms are aggravated by movement. Severity of pain: At its worst the pain was severe in the emergency department the pain is unchanged. The patient has experienced similar episodes in the past, a few times. 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 - Social history:: Smoking status: Patient/guardian denies using tobacco. - Ebola Screening: : No symptoms or risks identified at this time. ROS: 09/12 01:29 All other systems are negative. gs Exam: :29 Head/Face: Normocephalic, atraumatic. Eyes: Pupils equal round and reactive to light, gs extra-ocular motions intact. Lids and lashes normal. Conjunctiva and sclera are non-icteric and not injected. Cornea within normal limits. Periorbital areas with no swelling, redness, or edema. ENT: Nares patent. No nasal discharge, no septal abnormalities noted. Tympanic membranes are normal and external auditory canals are clear. Oropharynx with no redness, swelling, or masses, exudates, or evidence of obstruction, uvula midline. Mucous membranes moist. Neck: Trachea midline, no thyromegaly or masses palpated, and no cervical lymphadenopathy. Supple, full range of motion without nuchal rigidity, or vertebral point tenderness. No Meningismus. Chest/axilla: Normal chest wall appearance and motion. Nontender with no deformity. No lesions are appreciated. Cardiovascular: Regular rate and rhythm with a normal S1 and S2. No gallops, murmurs, or rubs. Normal PMI, no JVD. No pulse deficits. Respiratory: Lungs have equal breath sounds bilaterally, clear to auscultation and percussion. No rales, rhonchi or wheezes noted. No increased work of breathing, no retractions or nasal flaring. Back: No spinal tenderness. No costovertebral tenderness. Full range of motion. Skin: Warm, dry with normal turgor. Normal color with no rashes, no lesions, and no evidence of cellulitis. MS/ Extremity: Pulses equal, no cyanosis. Neurovascular intact. Full, normal range of motion. Neuro: Awake and alert, GCS 15, oriented to person, place, time, and situation. Cranial nerves II-XII grossly intact. Motor strength 5/5 in all extremities. Sensory grossly intact. Cerebellar exam normal. Normal gait. 01:29 Constitutional: The patient appears alert, awake, uncomfortable. 01:29 ECG was reviewed by the Attending Physician. 01:29 Abdomen/GI: Palpation: mild abdominal tenderness, in the right lower quadrant and left lower quadrant, rebound tenderness, is not appreciated, Hernia: noted in the umbilical area, tenderness, that is mild. Vital Signs: 09/11 21:42 BP 158 / 91; Pulse 90; Resp 16; Temp 98.5; Pulse Ox 98% on R/A; Weight 79.38 kg; Height la1 5 ft. 0 in. (152.40 cm); 22:30 BP 124 / 64; Pulse 87; Resp 16 S; Pulse Ox 99% on R/A; cc3 23:00 BP 122 / 75; Pulse 86; Resp 17 S; Pulse Ox 99% on R/A; cc3 09/12 00:48 BP 120 / 77; Pulse 85; Resp 15 S; Pulse Ox 100% on R/A; Pain 2/10; cc3 09/11 21:42 Body Mass Index 34.18 (79.38 kg, 152.40 cm) la1 MDM: 09/11 22:34 Patient medically screened. 09/12 01:29 Differential diagnosis: appendicitis, bowel obstruction, diverticulitis. Data reviewed: vital signs, nurses notes, lab test result(s), EKG, radiologic studies. Counseling: I had a detailed discussion with the patient and/or guardian regarding: the historical points, exam findings, and any diagnostic results supporting the discharge/admit diagnosis, lab results, radiology results, the need for outpatient follow up, a general surgeon. Response to treatment: the patient's symptoms have resolved after treatment, the patient's condition has returned to base line. 09/11 22:37 Order name: Basic Metabolic Panel; Complete Time: 23:56 09/11 22:37 Order name: CBC with Diff; Complete Time: 23:56 09/11 22:37 Order name: Hepatic Function; Complete Time: 23:56 09/11 22:37 Order name: Lipase; Complete Time: 23:56 09/11 22:37 Order name: Urine Microscopic Only 09/11 23:48 Order name: Urine Dipstick--Ancillary (enter results) [facility] 09/11 22:37 Order name: IV Saline Lock; Complete Time: 22:40 09/11 22:37 Order name: Labs collected and sent; Complete Time: 22:51 09/11 22:37 Order name: CT Abd/Pelvis - IV Contrast Only 09/11 22:37 Order name: Urine Test (obtain specimen); Complete Time: 23:49 09/11 23:48 Order name: Urine --Ancillary (enter results) [facility] 09/11 22:37 Order name: Urine Dipstick-Ancillary (obtain specimen); Complete Time: 23:49 EC:29 Rate is 79 beats/min. Rhythm is regular. OK interval is normal. QRS interval is normal. QT interval is normal. T waves are Flattened. Clinical impression: Abnormal EKG without significant change. Interpreted by me. Administered Medications: 09/11 22:40 Drug: fentaNYL (PF) 50 mcg {Note: RASS 0.} Route: IVP; Site: right antecubital; cc3 23:45 Follow up: Response: Pain is unchanged, physician notified cc3 23:45 Follow up: Response: No adverse reaction; RASS: Alert and Calm (0) cc3 22:45 Drug: Zofran 4 mg Route: IVP; Site: right antecubital; cc3 23:45 Follow up: Response: No adverse reaction; Nausea is decreased cc3 09/12 00:05 Drug: TORadol - Ketorolac 15 mg Route: IVP; Site: right antecubital; cc3 00:45 Follow up: Response: No adverse reaction; Pain is decreased cc3 Disposition: 09/12/19 00:43 Discharged to Home. Impression: Lower abdominal pain, unspecified. - Condition is Stable. - Discharge Instructions: Abdominal Pain, Adult. - Prescriptions for Tylenol- Codeine #4 300-60 mg Oral Tablet - take 1 tablet by ORAL route every 6 hours As needed; 10 tablet. - Medication Reconciliation Form, Thank You Letter, Antibiotic Education, Prescription Opioid Use form. - Follow up: Private Physician; When: 2 - 3 days; Reason: Re-evaluation by your physician. Signatures: Dispatcher [employer] EDMS Augustine Walsh RN RN la1 Titi Aaron MD MD gs Cordel, Charlene cc3 Corrections: (The following items were deleted from the chart) 01:11 00:43 09/12/2019 00:43 Discharged to Home. Impression: Lower abdominal pain, cc3 unspecified. Condition is Stable. Forms are Medication Reconciliation Form, Thank You Letter, Antibiotic Education, Prescription Opioid Use. Follow up: Private Physician; When: 2 - 3 days; Reason: Re-evaluation by your physician. gs
--- NOTE | 2019-09-12 00:45 | ER ---
Nurse's Notes [facility] Name: Padmini Storey Age: 33 yrs Sex: Female : 1985 Arrival Date: 09/11/2019 Time: 21:40 Bed 20 Private MD: Diagnosis: Lower abdominal pain, unspecified Presentation: 09/11 21:41 Presenting complaint: Patient states: I have been having real bad abd pain since 1730, la1 Reports nausea, denies vomiting. Transition of care: patient was not received from another setting of care. Onset of symptoms was September 11, 2019. Risk Assessment: Do you want to hurt yourself or someone else? Patient reports no desire to harm self or others. Initial Sepsis Screen: Does the patient meet any 2 criteria? No. Patient's initial sepsis screen is negative. Does the patient have a suspected source of infection? No. Patient's initial sepsis screen is negative. Care prior to arrival: None. 21:41 Method Of Arrival: Ambulatory la1 21:41 Acuity: CHRISTINE 3 la1 Triage Assessment: 21:44 General: Appears in no apparent distress. uncomfortable, Behavior is cooperative, cc3 crying. Pain: Complains of pain in whole abdomen Pain currently is 10 out of 10 on a pain scale. Quality of pain is described as aching. GI: Abdomen is round non-distended, Bowel sounds present X 4 quads. Abd is soft X 4 quads Abdomen is tender to palpation X 4 quads. 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 - Social history:: Smoking status: Patient/guardian denies using tobacco. - Ebola Screening: : No symptoms or risks identified at this time. Screenin:44 Abuse screen: Denies threats or abuse. Denies injuries from another. Nutritional cc3 screening: No deficits noted. Tuberculosis screening: No symptoms or risk factors identified. Fall Risk Ambulatory Aid- None/Bed Rest/Nurse Assist (0 pts). Gait- Normal/Bed Rest/Wheelchair (0 pts) Mental Status- Oriented to own ability (0 pts). Assessment: 21:44 General: Appears in no apparent distress. uncomfortable, Behavior is cooperative, cc3 crying. Pain: Complains of pain in whole abdomen Pain currently is 10 out of 10 on a pain scale. Quality of pain is described as aching. Neuro: Level of Consciousness is awake, alert, obeys commands, Oriented to person, place, time, situation, Appropriate for age. Cardiovascular: Heart tones S1 S2 present Capillary refill < 3 seconds in bilateral fingers Patient's skin is warm and dry. Rhythm is sinus rhythm. Cardiovascular: Reports chest pain. Respiratory: Airway is patent Respiratory effort is even, unlabored, Respiratory pattern is regular, symmetrical. GI: Abdomen is round non-distended, Bowel sounds present X 4 quads. Abd is soft X 4 quads Abdomen is tender to palpation X 4 quads. : No signs and/or symptoms were reported regarding the genitourinary system. EENT: No signs and/or symptoms were reported regarding the EENT system. Derm: Skin is intact, is healthy with good turgor, Skin is pink, warm \\T\\ dry. normal. Musculoskeletal: Circulation, motion, and sensation intact. Range of motion: intact in all extremities. 22:18 Reassessment: Patient appears in no apparent distress at this time. Patient and/or cc3 family updated on plan of care and expected duration. Pain level reassessed. Patient is alert, oriented x 3, equal unlabored respirations, skin warm/dry/pink. 23:25 Reassessment: Patient appears in no apparent distress at this time. Patient and/or cc3 family updated on plan of care and expected duration. Pain level reassessed. Patient is alert, oriented x 3, equal unlabored respirations, skin warm/dry/pink. 09/12 00:55 Reassessment: Patient appears in no apparent distress at this time. Patient and/or cc3 family updated on plan of care and expected duration. Pain level reassessed. Patient is alert, oriented x 3, equal unlabored respirations, skin warm/dry/pink. Dr. Aaron discharged the patient home with prescription given. IV cannula removed and patient left ER vitally stable and ambulatory with her . No valuables left in the patient's room. Patient denies pain at this time. Patient states feeling better. Patient states symptoms have improved. Vital Signs: 09/11 21:42 BP 158 / 91; Pulse 90; Resp 16; Temp 98.5; Pulse Ox 98% on R/A; Weight 79.38 kg; Height la1 5 ft. 0 in. (152.40 cm); 22:30 BP 124 / 64; Pulse 87; Resp 16 S; Pulse Ox 99% on R/A; cc3 23:00 BP 122 / 75; Pulse 86; Resp 17 S; Pulse Ox 99% on R/A; cc3 09/12 00:48 BP 120 / 77; Pulse 85; Resp 15 S; Pulse Ox 100% on R/A; Pain 2/10; cc3 09/11 21:42 Body Mass Index 34.18 (79.38 kg, 152.40 cm) la1 ED Course: 09/11 21:40 Patient arrived in ED. cf2 21:42 Triage completed. la1 21:42 Arm band placed on right wrist. la1 21:44 Jocelin Alexander is Primary Nurse. cc3 21:44 Titi Aaron MD is Attending Physician. gs 21:44 Patient has correct armband on for positive identification. Placed in gown. Bed in low cc3 position. Call light in reach. Pulse ox on. NIBP on. 22:00 Inserted saline lock: 20 gauge in right antecubital area, using aseptic technique. cc3 Blood collected. 22:53 Radiology exam delayed due to lab results not completed at this time. test bq not completed at this time. 23:19 Radiology exam delayed due to lab results not completed at this time. (BUN/Creatinine). kw1 09/12 00:09 CT Abd/Pelvis - IV Contrast Only In Process Unspecified. EDMS 00:55 No provider procedures requiring assistance completed. IV discontinued, intact, cc3 bleeding controlled, No redness/swelling at site. Pressure dressing applied. Administered Medications: 09/11 22:40 Drug: fentaNYL (PF) 50 mcg {Note: RASS 0.} Route: IVP; Site: right antecubital; cc3 23:45 Follow up: Response: Pain is unchanged, physician notified cc3 23:45 Follow up: Response: No adverse reaction; RASS: Alert and Calm (0) cc3 22:45 Drug: Zofran 4 mg Route: IVP; Site: right antecubital; cc3 23:45 Follow up: Response: No adverse reaction; Nausea is decreased cc3 09/12 00:05 Drug: TORadol - Ketorolac 15 mg Route: IVP; Site: right antecubital; cc3 00:45 Follow up: Response: No adverse reaction; Pain is decreased cc3 Outcome: 00:43 Discharge ordered by . 00:55 Discharged to home ambulatory, with family. cc3 00:55 Condition: stable 00:55 Discharge instructions given to patient, Instructed on discharge instructions, follow up and referral plans. medication usage, Demonstrated understanding of instructions, follow-up care, medications, Prescriptions given X 1. 01:11 Patient left the ED. cc3 Signatures: Dispatcher [employer] EDJennifer Roblero Lee, RN RN la1 Titi Aaron MD MD gs Wilhelm, Kimberly kwJocelin Willard cc3 Marisela Grande2
[2019-09-12 00:56] LABS: Urine Amorphous Sediment 2+ /HPF (NONE SEEN)
[2019-09-12 00:57] LABS: Urine Bacteria <20 /HPF (<20); Urine Culture Reflex Order NOT NEEDED; Urine RBC <5 /HPF (NONE SEEN)
[2019-09-12 00:57] LABS: Urine Blood TRACE (NEG); Urine Glucose NEGATIVE (NEG); Urine Protein NEGATIVE (NEG); Urine pH 7.5 (5.0-7.0)
[2019-09-12 01:25] VITALS: TEMP 98.5
[2019-09-12 01:29] VITALS: BP 122/75; O2SAT 99
--- NOTE | 2019-09-12 09:42 | RAD REPORT ---
EXAM DESCRIPTION: CT - Abdomen Pelvis W Contrast - 09/12/2019 4:28 am CLINICAL HISTORY: 33 years Female ABD PAIN COMPARISON: July 13, 2019. TECHNIQUE: Images were obtained in axial, sagittal, and coronal planes. Intravenous contrast was adm inistered. This exam was performed according to our departmental dose-optimization program which includes use of Automated Exposure Control, adjustment of the mA and/or kV according to patient size and/or use of i terative reconstruction technique. FINDINGS: Decreased attenuation involving the liver possibly fatty change. Unremarkable spleen, pancreas, gallbladder, and adrenal glands bilaterally. No obstructing renal calcifications bilaterally. No hydronephrosis bilaterally. Unremarkable bladder. 0.7 x 0.5 cm nonobstructing calcification inferior pole right kidney. Additional punctate nonobstruc ting calcifications kidneys bilaterally. 2.5 cm cyst right ovary. Appendix within normal limits. No bowel obstruction, perforation, or inflammation. Right ventral lucinda ia level of the pelvis which contains nondilated bowel loops. The appearance is unchanged when correl ated with the prior study. No abnormality lower lungs bilaterally. No acute osseous abnormality. No dilatation abdominal aorta. No adenopathy or abnormal fluid collections. Unremarkable portal vein. No dilatation abdominal aorta. Unremarkable portal vein. IMPRESSION: No acute intra-abdominal abnormality. Findings unchanged when correlated with the prior study. Right ventral hernia level of the pelvis unchanged. Electronically signed by: Faye oPrter MD 09/12/2019 12:15 AM CDT Due to temporary technical issues with the PACS/Fluency reporting system, reports are being signed by the in house radiologist as a courtesy to ensure prompt reporting. The interpreting radiologist is f ully responsible for the content of the report.
--- NOTE | 2019-09-12 10:00 | EKG ---
Test Date: 2019-09-11 Test Time: 22:09:55 Branch Office Manager: TIERRA MEASUREMENT RESULTS: Intervals: Rate: 79 TX: 124 QRSD: 84 QT: 390 QTc: 447 [place]: P: 3 TX: 124 QRS: 0 T: 53 INTERPRETIVE STATEMENTS: Normal sinus rhythm Nonspecific T wave abnormality Abnormal ECG No previous ECG available for comparison Electronically Signed On 09-12-19 10:00:19 CDT by Mike Montgomery
== END 2019-09-12 01:11 | disposition home or self-care (01) ==
LOC: ER 21:37
DX: R10.30 Lower abdominal pain, unspecified (principal); Z88.5 Allergy status to narcotic agent; Z88.8 Allergy status to other drugs, medicaments and biological substances
CPT/HCPCS: 93005; 85025; 80048; 36415; 81025; 80076; 83690; 74177; 96375; 96374; 99284; Q9967; J3010; J2405; 81003; 81015

== ENCOUNTER → 2021-09-09 | Emergency (ER) | payer OTHER ==
[~2021-09-09] MED LIST: ASPIRIN 81 MG CHEWABLE TABLET ONE; AZITHROMYCIN 250 MG TAB ONE; CEFTRIAXONE 1000 MG/VIAL ONE; FAMOTIDINE 20 MG/2 ML VIAL IV ONE; NA CHLORIDE 0.9% 1,000 ML ONE; NA CHLORIDE 0.9% 500 ML ONE; ONDANSETRON 4 MG/2 ML VIAL ONE
[2021-09-09 02:13] LABS: Absolute Lymphocytes (CBC) 0.7 K/uL (0.7-4.9); Basophils % 0.2 % (0-1.3); Hematocrit 38.5 % (36.0-45.0); Lymphocytes % 4.4 % (15.3-44.8); MPV 7.9 fL (7.6-11.3); RBC Red Blood Cell Count 4.86 M/uL (3.86-4.86)
[2021-09-09 02:15] LABS: Protime INR 1.06
[2021-09-09 02:29] LABS: ALT/SGPT 38 U/L (12-78); AST/SGOT 8 U/L (15-37); Albumin 3.3 g/dL (3.4-5.0); Alkaline Phosphatase 91 U/L (45-117); BUN Blood Urea Nitrogen 15 mg/dL (7-18); Bicarbonate 20 mmol/L (21-32); Bilirubin Direct < 0.1 mg/dL (0-0.2); Bilirubin Total 0.1 mg/dL (0.2-1.0); Glucose Level 277 mg/dL (74-106); Magnesium 2.2 mg/dL (1.8-2.4); NT PRO-BNP 62 pg/mL (<125); Potassium 3.9 mmol/L (3.5-5.1); Protein, Total 7.7 g/dL (6.4-8.2); Sodium Level 140 mmol/L (136-145); Troponin (Emerg Dept Use Only) < 0.02 ng/mL (0.0-0.045)
[2021-09-09 02:59] LABS: Blood Morphology Comment NOT SEEN (NOT SEEN); Platelet Estimate ADEQ
--- NOTE | 2021-09-09 04:58 | EDPHYS ---
Physician Documentation [facility] Name: Padmini Storey Age: 35 yrs Sex: Female : 1985 Arrival Date: 09/09/2021 Time: 01:25 Bed 2 Private MD: ARIELA Physician Cristian Ham HPI: 09/09 02:07 This 35 yrs old Female presents to ER via Wheelchair with complaints of dane Allergy Symptoms. 02:07 cough , congestion. The patient or guardian reports cough, that is intermittent, dane difficulty breathing. Onset: The symptoms/episode began/occurred 2 day(s) ago. Severity of symptoms: At their worst the symptoms were mild, in the emergency department the symptoms are unchanged. Modifying factors: The symptoms are alleviated by nothing, the symptoms are aggravated by nothing. Associated signs and symptoms: Pertinent positives: rhinorrhea. Severity of symptoms: At their worst the symptoms were mild in the emergency department the symptoms are unchanged. The patient has not experienced similar symptoms in the past. 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 - Social history:: Smoking status: Patient denies any tobacco usage or history of. - Family history:: not pertinent. - Code Status:: Full code. ROS: 02:07 Constitutional: Negative for fever, chills, and weight loss, Eyes: Negative for injury, dane pain, redness, and discharge, ENT: Negative for injury, pain, and discharge, Neck: Negative for injury, pain, and swelling, Respiratory: Negative for shortness of breath, cough, wheezing, and pleuritic chest pain, Abdomen/GI: Negative for abdominal pain, nausea, vomiting, diarrhea, and constipation, Back: Negative for injury and pain, : Negative for injury, bleeding, discharge, and swelling, MS/Extremity: Negative for injury and deformity, Skin: Negative for injury, rash, and discoloration, Neuro: Negative for headache, weakness, numbness, tingling, and seizure, Psych: Negative for depression, anxiety, suicide ideation, homicidal ideation, and hallucinations, Allergy/Immunology: Negative for hives, rash, and allergies, Endocrine: Negative for neck swelling, polydipsia, polyuria, polyphagia, and marked weight changes, Hematologic/Lymphatic: Negative for swollen nodes, abnormal bleeding, and unusual bruising. 02:07 Cardiovascular: Positive for chest pain. Exam: 02:07 Constitutional: This is a well developed, well nourished patient who is awake, alert, dane and in no acute distress. Head/Face: Normocephalic, atraumatic. Eyes: Pupils equal round and reactive to light, extra-ocular motions intact. Lids and lashes normal. Conjunctiva and sclera are non-icteric and not injected. Cornea within normal limits. Periorbital areas with no swelling, redness, or edema. ENT: Nares patent. No nasal discharge, no septal abnormalities noted. Tympanic membranes are normal and external auditory canals are clear. Oropharynx with no redness, swelling, or masses, exudates, or evidence of obstruction, uvula midline. Mucous membranes moist. Neck: Trachea midline, no thyromegaly or masses palpated, and no cervical lymphadenopathy. Supple, full range of motion without nuchal rigidity, or vertebral point tenderness. No Meningismus. Chest/axilla: Normal chest wall appearance and motion. Nontender with no deformity. No lesions are appreciated. Cardiovascular: Regular rate and rhythm with a normal S1 and S2. No gallops, murmurs, or rubs. Normal PMI, no JVD. No pulse deficits. Respiratory: Lungs have equal breath sounds bilaterally, clear to auscultation and percussion. No rales, rhonchi or wheezes noted. No increased work of breathing, no retractions or nasal flaring. Abdomen/GI: Soft, non-tender, with normal bowel sounds. No distension or tympany. No guarding or rebound. No evidence of tenderness throughout. Back: No spinal tenderness. No costovertebral tenderness. Full range of motion. Skin: Warm, dry with normal turgor. Normal color with no rashes, no lesions, and no evidence of cellulitis. MS/ Extremity: Pulses equal, no cyanosis. Neurovascular intact. Full, normal range of motion. Neuro: Awake and alert, GCS 15, oriented to person, place, time, and situation. Cranial nerves II-XII grossly intact. Motor strength 5/5 in all extremities. Sensory grossly intact. Cerebellar exam normal. Normal gait. Psych: Awake, alert, with orientation to person, place and time. Behavior, mood, and affect are within normal limits. 02:28 ECG was reviewed by the Attending Physician. dane Vital Signs: 01:39 BP 139 / 90; Pulse 106; Resp 18; Temp 97.9; Pulse Ox 100% on R/A; Weight 83.91 kg; em Height 5 ft. 0 in. (152.40 cm); Pain 7/10; 01:39 Body Mass Index 36.13 (83.91 kg, 152.40 cm) em Sara Coma Score: 02:07 Eye Response: spontaneous(4). Verbal Response: oriented(5). Motor Response: obeys cw2 commands(6). Total: 15. MDM: 01:49 Patient medically screened. dane 02:10 Differential Diagnosis flu, Bronchitis Influenza Upper Respiratory Infection. Data dane reviewed: vital signs, nurses notes, lab test result(s), EKG, radiologic studies. Data interpreted: rn wellness: rate is 106 beats/min, rhythm is regular, Pulse oximetry: on room air. Test interpretation: by ED physician or midlevel provider: ECG, plain radiologic studies. 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 09/09 01:49 Order name: Basic Metabolic Panel; Complete Time: 03:19 [facility] 09/09 01:49 Order name: CBC with Diff; Complete Time: 03:19 [facility] 09/09 01:49 Order name: LFT's; Complete Time: 03:19 [facility] 09/09 01:49 Order name: Magnesium; Complete Time: 03:19 [facility] 09/09 01:49 Order name: NT PRO-BNP; Complete Time: 03:19 [facility] 09/09 01:49 Order name: PT-INR; Complete Time: 02:26 [facility] 09/09 01:49 Order name: Troponin (emerg Dept Use Only); Complete Time: 03:19 [facility] 09/09 02:07 Order name: D-Dimer [facility] 09/09 02:10 Order name: D-Dimer; Complete Time: 02:26 [facility] 09/09 02:15 Order name: Manual Differential; Complete Time: 03:19 [facility] 09/09 02:29 Order name: Troponin (emerg Dept Use Only): 330am repeat [facility] 09/09 03:23 Order name: Blood Culture Adult (2) [facility] 09/09 03:23 Order name: Lactate [facility] 09/09 01:49 Order name: XRAY Chest (1 view) [facility] 09/09 01:49 Order name: EKG; Complete Time: 01:50 [facility] 09/09 02:32 Order name: CT Chest For PE Angio [facility] 09/09 03:24 Order name: Blood Culture [facility] 09/09 03:24 Order name: Lactate; Complete Time: 05:36 [facility] 09/09 03:47 Order name: EKG; Complete Time: 03:47 [facility] 09/09 05:15 Order name: COVID-19 : Document "Date of Symptom Onset" if Symptomatic. tt3 09/09 01:49 Order name: Cardiac monitoring; Complete Time: 05:12 [facility] 09/09 01:49 Order name: EKG - Nurse/Tech; Complete Time: 05:12 [facility] 09/09 01:49 Order name: IV Saline Lock; Complete Time: 05:12 [facility] 09/09 01:49 Order name: Labs collected and sent; Complete Time: 05:12 [facility] 09/09 01:49 Order name: O2 Per Protocol; Complete Time: 05:12 [facility] 09/09 01:49 Order name: O2 Sat Monitoring; Complete Time: 05:12 [facility] 09/09 03:47 Order name: EKG - Nurse/Tech; Complete Time: 05:11 [facility] EC:28 Rate is 96 beats/min. Rhythm is regular. QRS [place] is Normal. [place] interval is normal. QRS dane interval is normal. QT interval is normal. No Q waves. T waves are Normal. No ST changes noted. Clinical impression: Normal ECG and No evidence of ischemia. Interpreted by me. Reviewed by me. Administered Medications: 02:19 Drug: NS 0.9% 500 ml Route: IV; Rate: bolus; Site: left hand; cw2 05:12 Follow up: IV Status: Completed infusion; IV Intake: 500ml cw2 02:19 Drug: NS 0.9% 1000 ml Route: IV; Rate: 125 ml/hr; Site: left hand; cw2 05:12 Follow up: IV Status: Completed infusion; IV Intake: 1000ml cw2 02:19 Drug: Aspirin Chewable Tablet 162 mg Route: PO; cw2 05:11 Follow up: Response: No adverse reaction cw2 02:19 Drug: Pepcid (famotidine) 20 mg Route: IVP; Site: left hand; cw2 05:11 Follow up: Response: No adverse reaction cw2 03:30 Drug: Zofran (Ondansetron) 4 mg Route: IVP; Site: left antecubital; cw2 05:10 Follow up: Response: Nausea is decreased cw2 04:40 Drug: Rocephin (cefTRIAXone) 1 grams Route: IV; Rate: per protocol; Site: left hand; cw2 05:10 Follow up: IV Status: Completed infusion; IV Intake: 1000ml cw2 04:40 Drug: Zithromax (azithromycin) 500 mg Route: PO; cw2 05:10 Follow up: Response: No adverse reaction cw2 04:40 Drug: NS 0.9% 1000 ml Route: IV; Rate: 1 bolus; Site: left hand; cw2 05:10 Follow up: IV Status: Completed infusion; IV Intake: 1000ml cw2 05:09 Drug: NS 0.9% 1000 ml Route: IV; Rate: 1 bolus; Site: left antecubital; cw2 05:11 Follow up: IV Status: Completed infusion; IV Intake: 1000ml cw2 Disposition Summary: 09/09/21 05:04 Hospitalization Ordered Hospitalization Status: Observation dane Provider: Evelia Travis cha Location: Telemetry/MedSurg (observation)(09/09/21 05:04) dane Condition: Fair(09/09/21 05:04) dane Problem: new(09/09/21 05:04) dane Symptoms: have improved(09/09/21 05:04) dane Bed/Room Type: Standard dane Room Assignment: dane Diagnosis - Chest pain, unspecified dane - Elevated white blood cell count(09/09/21 05:04) dane - Bandemia(09/09/21 05:04) dane - Dyspnea dane Forms: - Medication Reconciliation Form dane - SBAR form dane Signatures: Dispatcher [employer] EDCristian Patel MD MD cha Munoz, Edgar RN RN Kale Medina RN RN cw2 Corrections: (The following items were deleted from the chart) 02:10 02:07 D-Dimer ordered. EDWA EDWA 05:02 04:57 Home dane dane 05:02 04:57 new dane dane 05:02 04:57 have improved dane dane 05:02 04:57 Fair dane dane 05:02 04:57 Chest pain on breathing dane dane 05:02 04:57 Weakness dane dane 05:02 04:57 Elevated white blood cell count dane dane 05:02 04:57 Bandemia dane dnae
--- NOTE | 2021-09-09 04:58 | ER ---
Nurse's Notes [facility] Name: Padmini Storey Age: 35 yrs Sex: Female : 1985 Arrival Date: 09/09/2021 Time: 01:25 Bed 2 Private MD: Diagnosis: Chest pain, unspecified;Elevated white blood cell count;Bandemia;Dyspnea Presentation: 09/09 01:39 Coronavirus screen: Vaccine status: Patient reports receiving the 2nd dose of the covid em vaccine. Ebola Screen: Patient negative for fever greater than or equal to 101.5 degrees Fahrenheit, and additional compatible Ebola Virus Disease symptoms Patient denies exposure to infectious person. Patient denies travel to an Ebola-affected area in the 21 days before illness onset. No symptoms or risks identified at this time. Initial Sepsis Screen: Does the patient meet any 2 criteria? No. Patient's initial sepsis screen is negative. Does the patient have a suspected source of infection? No. Patient's initial sepsis screen is negative. Risk Assessment: Do you want to hurt yourself or someone else? Patient reports no desire to harm self or others. Onset of symptoms was September 09, 2021. 01:39 Method Of Arrival: Wheelchair em 01:39 Acuity: CHRISTINE 3 em 02:06 Onset: The symptoms/episode began/occurred suddenly, at an unknown time. Anaphylaxis cw2 evaluation, no signs or symptoms of anaphylaxis were noted. 02:11 Chief complaint: Patient states: SOB X 2 DAYS. NUMBNESS TO RIGHT ARM AFTER TAKING cw2 TESSALLON PEARLS. 06:03 Note PT REQUESTING TO LEAVE AMA AT THIS TIME. PT AWAKE ALERT AOX4 SPEAKING IN FULL cw2 SENTENCES. PT AMBULATORY ALONE WITH A STEADY GAIT. PT ADVISED OF RISKS ASSOCIATED WITH LEAVING AMA UP TO INCLUDING PERMANENT DISABILITY AND . PT ACKNOWLEDGES. PT ADVISED THAT SHE IS ADMITTED TO THE HOSPITAL AND OF THE PLAN WITH HER ADMISSION. PT ACKNOWLEDGES BUT IS STILL LEAVING AMA. PT ADVISED TO RETURN TO ED AT ANYTIME. PT ACKNOWLEDGES. IV'S DC'D WITH CATHETERS FULLY INTACT. PT STABLE AT THIS TIME. Triage Assessment: 02:06 General: Appears in no apparent distress. Behavior is calm, cooperative, appropriate cw2 for age. Pain: Denies pain. EENT: No deficits noted. Neuro: No deficits noted. Cardiovascular: No deficits noted. Respiratory: No deficits noted. GI: No deficits noted. : No deficits noted. 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 - Social history:: Smoking status: Patient denies any tobacco usage or history of. - Family history:: not pertinent. - Code Status:: Full code. Screenin:07 Abuse screen: Denies threats or abuse. Nutritional screening: No deficits noted. cw2 Tuberculosis screening: No symptoms or risk factors identified. Fall Risk IV access (20 points). Assessment: 02:07 General: Appears in no apparent distress. Behavior is calm, cooperative, appropriate cw2 for age. Pain: Denies pain. Neuro: No deficits noted. Respiratory: No deficits noted. Airway is patent Respiratory effort is even, Breath sounds are clear bilaterally. Vital Signs: 01:39 BP 139 / 90; Pulse 106; Resp 18; Temp 97.9; Pulse Ox 100% on R/A; Weight 83.91 kg; em Height 5 ft. 0 in. (152.40 cm); Pain 7/10; 01:39 Body Mass Index 36.13 (83.91 kg, 152.40 cm) em [place] Coma Score: 02:07 Eye Response: spontaneous(4). Verbal Response: oriented(5). Motor Response: obeys cw2 commands(6). Total: 15. ED Course: 01:25 Patient arrived in ED. wm 01:39 Arm band placed on. em 01:42 Triage completed. em 01:49 Cristian Ham MD is Attending Physician. dane 01:54 Kale Burch RN is Primary Nurse. cw2 02:07 Patient has correct armband on for positive identification. Bed in low position. Call cw2 light in reach. Side rails up X2. patient monitor on. Pulse ox on. NIBP on. Door closed. Noise minimized. Lights dimmed. Moved to private room. 02:07 No provider procedures requiring assistance completed. Inserted saline lock: 20 gauge cw2 in left hand, using aseptic technique. 02:12 X-ray completed. Portable x-ray completed in exam room. md1 02:31 XRAY Chest (1 view) In Process Unspecified. EDMS 04:03 CT Chest For PE Angio In Process Unspecified. EDMS 04:57 Antonio Anders MD is Referral Physician. dane 05:03 Evelia Travis MD is Hospitalizing Provider. dane 06:22 IV discontinued, intact, bleeding controlled, No redness/swelling at site. Pressure em dressing applied. Administered Medications: 02:19 Drug: NS 0.9% 500 ml Route: IV; Rate: bolus; Site: left hand; cw2 05:12 Follow up: IV Status: Completed infusion; IV Intake: 500ml cw2 02:19 Drug: NS 0.9% 1000 ml Route: IV; Rate: 125 ml/hr; Site: left hand; cw2 05:12 Follow up: IV Status: Completed infusion; IV Intake: 1000ml cw2 02:19 Drug: Aspirin Chewable Tablet 162 mg Route: PO; cw2 05:11 Follow up: Response: No adverse reaction cw2 02:19 Drug: Pepcid (famotidine) 20 mg Route: IVP; Site: left hand; cw2 05:11 Follow up: Response: No adverse reaction cw2 03:30 Drug: Zofran (Ondansetron) 4 mg Route: IVP; Site: left antecubital; cw2 05:10 Follow up: Response: Nausea is decreased cw2 04:40 Drug: Rocephin (cefTRIAXone) 1 grams Route: IV; Rate: per protocol; Site: left hand; cw2 05:10 Follow up: IV Status: Completed infusion; IV Intake: 1000ml cw2 04:40 Drug: Zithromax (azithromycin) 500 mg Route: PO; cw2 05:10 Follow up: Response: No adverse reaction cw2 04:40 Drug: NS 0.9% 1000 ml Route: IV; Rate: 1 bolus; Site: left hand; cw2 05:10 Follow up: IV Status: Completed infusion; IV Intake: 1000ml cw2 05:09 Drug: NS 0.9% 1000 ml Route: IV; Rate: 1 bolus; Site: left antecubital; cw2 05:11 Follow up: IV Status: Completed infusion; IV Intake: 1000ml cw2 Intake: 05:10 IV: 1000ml; Total: 1000ml. cw2 05:10 IV: 1000ml; Total: 2000ml. cw2 05:11 IV: 1000ml; Total: 3000ml. cw2 05:12 IV: 1000ml; Total: 4000ml. cw2 05:12 IV: 500ml; Total: 4500ml. cw2 Outcome: 04:57 Discharge ordered by MD. [facility] 05:04 Decision to Hospitalize by Provider. [facility] 06:22 AMA AMA form signed em 06:22 Condition: stable 06:22 Instructed on discharge instructions, Demonstrated understanding of instructions. 06:22 Patient left the ED. em Signatures: Dispatcher [employer] Cristian Howell MD MD cha Munoz, Edgar, RN RN em Ting Saenz Wendy wm Williams, Christopher, RN RN cw2 Corrections: (The following items were deleted from the chart) 02:06 01:39 Chief complaint: Patient states: chest and back pain that started , has cw2 di seen at [facility] 2 times and given breathing treatments and steroids, covid flu and strep all negative, also reports dianne. numbness and tighling, right side has pain that started 2 hours ago after taking Tessalon pearls em
[2021-09-09 06:42] VITALS: BP 139/90; TEMP 97.9; O2SAT 100
--- NOTE | 2021-09-09 07:05 | EKG ---
Test Date: 2021-09-09 Test Time: 02:12:24 Rug Hooker: DANIEL MEASUREMENT RESULTS: Intervals: Rate: 96 [place]: 144 QRSD: 86 QT: 360 QTc: 454 [place]: P: 59 GA: 144 QRS: -16 T: 43 INTERPRETIVE STATEMENTS: Normal sinus rhythm with sinus arrhythmia Normal ECG Compared to ECG 09/11/2019 22:09:55 T-wave abnormality no longer present Electronically Signed On 09-09-21 07:04:22 CDT by Antonio Anders
--- NOTE | 2021-09-09 07:34 | RAD REPORT ---
EXAM DESCRIPTION: RAD - Chest Single View - 09/09/2021 2:32 am CLINICAL HISTORY: COUGH COMPARISON: None TECHNIQUE: AP portable chest image was obtained 09/09/2021 2:32 am . FINDINGS: No large mass or consolidation. Bibasilar interstitial markings are increased much of whic h is due to portable technique and overlying chest soft tissues. Early infiltrate cannot be excluded. No specific finding that would elevate concern for COVID-19 pneumonia. Heart and vasculature are nor mal. No measurable pleural effusion and no pneumothorax. No acute bony abnormality seen. No acute aor tic findings suspected. IMPRESSION: Baseline study showing mild increase in bibasilar interstitial pattern. Lung base findings are mostly or entirely due to under penetrated technique and overlying soft tissue s. Early infiltrate or edema are not entirely excluded. .
--- NOTE | 2021-09-09 11:01 | RAD REPORT ---
EXAM DESCRIPTION: CT - Chest For Pe Angio - 09/09/2021 5:21 am CLINICAL HISTORY: Chest pain;Dyspnea;PE COMPARISON: None Available. TECHNIQUE: CTA of the chest obtained following the uncomplicated intravenous administration of iodin ated contrast. 3-D/MIP reformatted images of the chest available for evaluation. This exam was perfor med according to our departmental dose-optimization program, which includes automated exposure contro l, adjustment of the mA and/or kV according to patient size and/or use of iterative reconstruction te chnique. FINDINGS: Chest: Pulmonary arteries: Contrast bolus is adequate.No filling defects identified in the pulmonary arterie s to suggest pulmonary embolus. Respiratory motion artifact. Thyroid: No abnormalities of the visualized thyroid. Great Vessels: Great vessels have normal anatomic configuration. Thoracic Aorta: No abnormalities of the thoracic aorta identified. Heart: No cardiomegaly, significant pericardial effusion, or coronary artery atherosclerosis Lymph Nodes: No enlarged mediastinal lymph nodes identified. Esophagus: No abnormalities of the esophagus identified. Other: No additional findings. Lungs: No airspace opacities identified. Pleura: No pleural effusion or pneumothorax. Trachea/Airways: No abnormalities of the visualized trachea or airways. Bones: No destructive osseous lesions. Upper Abdomen: Limited images of the upper abdomen demonstrate no definite abnormalities of visualize d portions of the liver, gallbladder, pancreas, spleen, adrenal glands, or kidneys. IMPRESSION: 1. No pulmonary embolus. No acute pulmonary process. Electronically signed by: Kale Fox 09/09/2021 4:32 AM CDT Due to temporary technical issues with the PACS/Fluency reporting system, reports are being signed by the in house radiologists without review as a courtesy to insure prompt reporting. The interpreting radiologist is fully responsible for the content of the report.
== END ==
LOC: ER 01:24 → ERHOLD 05:31 → UNDOADMOB 05:31
DX: R07.9 Chest pain, unspecified (principal); R06.00 Dyspnea, unspecified; D72.825 Bandemia; Z88.6 Allergy status to analgesic agent
CPT/HCPCS: 36415; 71045; 71275; 80048; 80076; 83605; 83735; 83880; 84484; 85025; 85379; 85610; 87040; 93005; 96361; 96365; 96375; 99284; J2405; J7030; J7040; Q9967